=== PATIENT | female | born 1985 | race Asian ===

== ENCOUNTER → 2021-07-04 12:26 | Outpatient (CLI) | payer OTHER, MEDICAID, SELFPAY ==
--- NOTE | 2021-07-04 12:34 | DI.US.S_ITS ---
PROCEDURE: US OB >= 14 WEEKS FETUS INDICATIONS: ANATOMY OUTSIDE/PRIOR DATING DATA: Last menstrual period (LMP): Unknown. LMP-based estimated date of delivery (WILLY): Unknown. First dating scan (date and location): 07/03/2021. Estimated date of delivery (WILLY) from first dating scan: 09/20/2021. TECHNIQUE: Real-time scanning was performed of the fetus, with image documentation and biometric measurements. COMPARISON: None. FINDINGS: General: A single living intrauterine gestation is present. Presentation: Vertex Placenta: Placental position is posterior,, without previa. Amniotic fluid index: 8.9 cm, normal range is 5-24 cm. heart rate: 140 beats per minute. Maternal cervical canal: 4.9 cm long. Normal lower limit is 2.5 cm. biometrics: Biparietal diameter: 7.46 cm, 29 weeks, 6 days. Head circumference: 26.75 cm, 29 weeks, 1 day. Abdominal circumference: 24.05 cm, 28 weeks, 2 days. Femur length: 5.36 cm, 28 weeks, 3 days. Estimated gestational age from initial scan: not applicable. Composite gestational age from present scan: 28 weeks, 6 days Estimated weight and percentile: 1229 grams. Measurement variability for biometric dating: +/- 7 days from 14 weeks to 15 weeks 6 days gestation, +/- 10 days from 16 weeks to 21 weeks 6 days gestation, +/- 2 weeks from 22 weeks to 27 weeks 6 days gestation, +/- 3 weeks for 28 weeks gestation or later. weight reference: 4500 g or EFW >90/95% is considered macrosomia or large for gestational age. EFW <10% is small for gestational age. EFW 5% or less is considered intra-uterine growth restriction. Anatomic survey: Neuro: Ventricles are non-dilated at less than 10 mm. Cisterna magna is normal at 3-11 mm. Cerebellum is prominent in size for gestational age and measures 32.7 mm. Nuchal skin fold: Not evaluated due to current gestational age. Face: Nose and lips, facial profile are normal. Spine: Not well seen due to position. Heart: Questionable echogenic focus is seen in left ventricle. Right ventricular outflow tract is not well seen. Diaphragm: Diaphragm is intact. Stomach: Left-sided stomach is present. Kidneys: No hydronephrosis. Normal is less than 5 mm in 2nd trimester, less than 7 mm in 3rd trimester. Cord: 3-vessel cord has orthotopic insertion. Bladder: Normal in size. Extremities: All 4 extremities identified. IMPRESSION: 1. Single live intrauterine with fetus in vertex presentation. heart rate is 140 beats per minute. Estimated gestational age based on current study is 28 weeks, 6 days. Estimated weight is 1229 grams. Normal amount of amniotic fluid. 2. Possible echogenic focus seen in left ventricle. Right ventricular outflow tract is not well seen due to position. spine is not well seen due to position. 3. Prominent cerebellum foot gestational age, suggest clinical and sonographic follow-up. Dictated by: Yong Seay M.D. on 07/04/2021 at 14:53 Approved by: Yong Seay M.D. on 07/04/2021 at 14:59
== END ==
PROVIDERS: PCP Family Medicine; Referring Provider Family Medicine; Visit Provider Family Medicine
DX: Z34.83 Encounter for supervision of other normal pregnancy, third trimester (principal)
CPT/HCPCS: 76811

== ENCOUNTER → 2021-07-09 13:25 | Outpatient (CLI) | payer OTHER, MEDICAID, SELFPAY ==
[2021-07-09 15:41] LABS: Hematocrit 29.3 % (36-46); Hemoglobin 9.9 g/dL (12.0-16.0)
[2021-07-09 19:32] LABS: GTT (PREG) 1 Hour PP 50gm Dose 125 mg/dL (76-139)
== END ==
PROVIDERS: PCP Family Medicine; Referring Provider Family Medicine; Visit Provider Family Medicine
DX: Z34.90 Encounter for supervision of normal pregnancy, unspecified, unspecified trimester (principal)
CPT/HCPCS: 36415; 82950; 85014; 85018

== ENCOUNTER → 2021-07-14 14:16 | Outpatient (CLI) | payer OTHER, MEDICAID, SELFPAY ==
--- NOTE | 2021-07-14 14:16 | DI.US.S_ITS ---
PROCEDURE: US OB FOLLOW UP INDICATIONS: FOLLOW UP ANATOMY OUTSIDE/PRIOR DATING DATA: First dating scan (date and location): 07/03/2021 . Estimated date of delivery (WILLY) from first dating scan: 09/20/2021 . TECHNIQUE: Real-time scanning was performed of the fetus, with image documentation and biometric measurements. Endovaginal scanning: No COMPARISON: [facility], , OB >= 14 WEEKS FETUS, 07/04/2021, 13:06. FINDINGS: General: A single living intrauterine gestation is present. Presentation: Vertex. Placenta: Placental position is posterior , without previa. Amniotic fluid index: 4.4 cm, normal range is 5-24 cm. heart rate: 145 beats per minute. Maternal cervical canal: 4.1 cm long. Normal lower limit is 2.5 cm. Left ventricular intracardiac focus redemonstrated. Normal appearance of the RVOT. Spine is again not well seen secondary to positioning. Cerebellum is prominent but appears morphologically normal. IMPRESSION: 1. Single living IUP redemonstrated. 2. Left ventricular intracardiac focus redemonstrated. 3. Normal appearance of the RVOT and the spine is again not well visualized. 4. Morphologically normal appearance of the cerebellum which appears mildly prominent. 5. Amniotic fluid index measuring 4.4 cm which is less than the 5th percentile for age. Short-term follow-up ultrasound recommended. Dictated by: Basilio BRENNER Interpreted: Violetta Parsons MD on 07/14/2021 at 16:36 Transcribed by: LY on 07/14/2021 at 16:43 Approved by: Violetta Parsons MD, PhD on 07/14/2021 at 16:56
== END ==
PROVIDERS: PCP Family Medicine; Referring Provider Family Medicine; Visit Provider Family Medicine
DX: O28.3 Abnormal ultrasonic finding on antenatal screening of mother (principal)
CPT/HCPCS: 76816

== ENCOUNTER 2021-07-14 17:47 | Outpatient (CLI) | payer OTHER, MEDICAID, SELFPAY ==
--- NOTE | 2021-07-14 19:20 | PM.OBTRLD ---
Visit Information Visit Information Date of evaluation: 07/14/21 Primary OB Provider: Mikaela Beltran Reason for Evaluation: Yes non-stress test non-stress test reason: other (oligohydramnios) Comments/Additional reasons for admission: Patient is a 36-year-old at 30 weeks gestation here for NST for incidental oligohydramnios. She had a gap in care from 19-29 weeks and just had her anatomy ultrasound last week. Ultrasound was incomplete so a repeat ultrasound was performed today to better assess the heart, cerebellum and spine. PAUL incidentally was 4.4. Results were discussed with the patient and she was sent to the center for an NST. There is an urgent MFM referral pending. Ultrasound was also significant for a left ventricular intracardiac focus and prominent cerebellum but otherwise morphologically normal. She did not have a quad screen this . Vital Signs Vital Signs: T 36.5 BP 91/50 P 64 PFS Medical History (Updated 07/15/21 @ 07:35 by Mikaela Beltran DO) Allergic rhinitis Hives Oligohydramnios antepartum Pityriasis rosea (spontaneous vaginal delivery) (~10/2017) Surgical History [place] teeth extracted Family History Father Healthy adult male Family estrangement Mother Healthy female adult Family estrangement Grandfather No problems noted. Grandmother No problems noted. Grandfather No problems noted. Grandmother No problems noted. Social History marital status: number of children: 1 household members: children lives independently: Yes (In a Hotel ) caregiver/support person: No pets and animals: No occupational status: unemployed current occupational exposures/hazards: No special pipo needs: No Smoking Status: Former smoker Tobacco: How many years used: 13 quit status: quit date established (04/13/2017) second hand exposure: No ( smokes : but outside) alcohol intake: former (Pre- : 1-2/week) substance use type: does not use Evaluation Evaluation Baseline heart rate: 130 Variability: Moderate (11-25) monitor accelerations: Present Monitor Decelerations: Absent Category of Tracing: Reactive Diagnosis, Plan/Disposition Final Diagnosis (1) 30 weeks gestation of : Status: Acute (2) Oligohydramnios antepartum: Status: Acute Plan/Disposition Plan: 36-year-old at 30 weeks gestation with oligohydramnios of unknown etiology. NST reactive. She is aware of urgent MFM referral and will hopefully be seen this week. At a minimum she will need weekly PAUL is in twice weekly NSTs but will defer to MFM recommendations. OB Disposition: home
== END 2021-07-14 18:45 | disposition home or self-care (01) ==
LOC: OB 07-16 11:43
PROVIDERS: PCP Family Medicine; Referring Provider Family Medicine; Visit Provider Family Medicine
DX: O41.03X0 Oligohydramnios, third trimester, not applicable or unspecified (principal); Z3A.30 30 weeks gestation of pregnancy; O28.3 Abnormal ultrasonic finding on antenatal screening of mother
CPT/HCPCS: 59025; 76816; G0378; G0379

== ENCOUNTER 2021-07-18 10:51 | Outpatient (CLI) | payer OTHER, MEDICAID, SELFPAY ==
--- NOTE | 2021-07-18 10:55 | DI.US.S_ITS ---
PROCEDURE: US OB BIOPHYSICAL PROFILE INDICATIONS: OLIGOHYDRAMNIOS OUTSIDE/PRIOR DATING DATA: Last menstrual period (LMP): Not known. LMP-based estimated date of delivery (WILLY): Not applicable. First dating scan (date and location): July 03, 2021. Estimated date of delivery (WILLY) from first dating scan: September 20, 2021. TECHNIQUE: Real-time scanning was performed of the fetus for biophysical profile, with image documentation. Color and pulse Doppler interrogation was also performed of the umbilical artery near its insertion into the placenta. Endovaginal scanning: Performed COMPARISON: [facility], OB FOLLOW UP, 07/14/2021, 14:32. [facility], OB >= 14 WEEKS FETUS, 07/04/2021, 13:06. FINDINGS: General: A single living intrauterine gestation is present. Presentation: Vertex Placenta: Placental position is posterior fundal, without previa. Amniotic fluid index: 5.7 cm, normal range is 5-24 cm. heart rate: 163 beats per minute. Maternal cervical canal: Not well visualized and cannot be evaluated. Estimated gestational age from initial scan: 30 weeks 6 days. Biophysical profile: Tone: 2 points. Movement: 2 points. Respiration: 2 points. Largest pocket of fluid: 2 points. Umbilical artery Doppler: Not evaluated IMPRESSION: 1. Single living intrauterine . 2. Amniotic fluid index 5.7 centimeters and largest amniotic fluid pocket measuring 4.3 centimeters. 3. Biophysical profile score 8/8. Dictated by: Violetta Parsons MD, PhD on 07/18/2021 at 12:37 Approved by: Violetta Parsons MD, PhD on 07/18/2021 at 12:40
--- NOTE | 2021-07-18 11:24 | PM.OBTRLD ---
Visit Information Visit Information Date of evaluation: 07/18/21 Primary OB Provider: Mikaela Beltran Reason for Evaluation: Yes non-stress test non-stress test reason: other (oligohydramnios) Vital Signs Vital Signs: T 96.6 BP 103/58 P 77 PFSH Medical History Allergic rhinitis Hives Oligohydramnios antepartum Pityriasis rosea (spontaneous vaginal delivery) (~10/2017) Surgical History [place] teeth extracted Family History Father Healthy adult male Family estrangement Mother Healthy female adult Family estrangement Grandfather No problems noted. Grandmother No problems noted. Grandfather No problems noted. Grandmother No problems noted. Social History marital status: number of children: 1 household members: children lives independently: Yes (In a Hotel ) caregiver/support person: No pets and animals: No occupational status: unemployed current occupational exposures/hazards: No special pipo needs: No Smoking Status: Former smoker Tobacco: How many years used: 13 quit status: quit date established (04/13/2017) second hand exposure: No ( smokes : but outside) alcohol intake: former (Pre- : 1-2/week) substance use type: does not use Evaluation Evaluation Baseline heart rate: 130 Variability: Moderate (11-25) monitor accelerations: Present Monitor Decelerations: Absent Category of Tracing: Reactive Diagnosis, Plan/Disposition Plan/Disposition Plan: 36-year-old at 30 weeks and 4 days gestation with oligohydramnios of unknown etiology.? BPP 8/8 and NST reactive.? PAUL 5.7, improved from 4.4 earlier this week. She is scheduled with MFM on Wednesday07/21/21 and will follow up in clinic next week as well.
== END 2021-07-18 11:50 | disposition home or self-care (01) ==
LOC: LABOR 11:03 → OB 07-29 03:06
PROVIDERS: PCP Family Medicine; Referring Provider Family Medicine; Visit Provider Family Medicine
DX: O41.03X0 Oligohydramnios, third trimester, not applicable or unspecified (principal); O09.523 Supervision of elderly multigravida, third trimester; Z3A.30 30 weeks gestation of pregnancy
CPT/HCPCS: 59025; 76819; G0378; G0379

== ENCOUNTER 2021-07-25 15:41 | Outpatient (CLI) | payer OTHER, MEDICAID, SELFPAY ==
--- NOTE | 2021-07-25 17:11 | P.TNLD_ITS ---
Visit Information Visit Information Date of evaluation: 07/25/21 Primary OB Provider: Mikaela Beltran Reason for Evaluation: Yes non-stress test Comments/Additional reasons for admission: 36-year-old at 31 weeks and 4 days gestation with growth restriction and borderline oligohydramnios followed by maternal medicine. PAUL earlier this week was 5.7. Recommendation is for weekly PAUL and umbilical artery Dopplers with twice weekly NST. Vital Signs Vital Signs: Temperature 36.1? blood pressure 96/56 heart rate 69 PFSH Medical History Allergic rhinitis Hives Oligohydramnios antepartum Pityriasis rosea (spontaneous vaginal delivery) (~10/2017) Surgical History [place] teeth extracted Family History Father Healthy adult male Family estrangement Mother Healthy female adult Family estrangement Grandfather No problems noted. Grandmother No problems noted. Grandfather No problems noted. Grandmother No problems noted. Social History marital status: number of children: 1 household members: children lives independently: Yes (In a Hotel ) caregiver/support person: No pets and animals: No occupational status: unemployed current occupational exposures/hazards: No special pipo needs: No Smoking Status: Former smoker Tobacco: How many years used: 13 quit status: quit date established (04/13/2017) second hand exposure: No ( smokes : but outside) alcohol intake: former (Pre- : 1-2/week) substance use type: does not use Evaluation Evaluation Baseline heart rate: 130 Variability: Moderate (11-25) monitor accelerations: Present Monitor Decelerations: Absent Category of Tracing: Reactive Diagnosis, Plan/Disposition Final Diagnosis (1) Oligohydramnios antepartum: Status: Acute (2) 31 weeks gestation of : Status: Acute (3) growth restriction: Status: Acute Plan/Disposition Plan: NST reactive. She will follow-up with MFM next week for NST, PAUL in umbilical artery Dopplers. Will plan for NST here at the end of next week. She will return for decreased movement, contractions, leaking or bleeding. OB Disposition: home
== END 2021-07-25 16:45 | disposition home or self-care (01) ==
LOC: LABOR 16:02 → OB 07-29 04:48
PROVIDERS: PCP Family Medicine; Referring Provider Family Medicine; Visit Provider Family Medicine
DX: O41.03X0 Oligohydramnios, third trimester, not applicable or unspecified (principal); O09.523 Supervision of elderly multigravida, third trimester; Z3A.31 31 weeks gestation of pregnancy
CPT/HCPCS: 59025; G0378; G0379

== ENCOUNTER 2021-08-01 13:56 | Outpatient (CLI) | payer OTHER, MEDICAID, SELFPAY ==
--- NOTE | 2021-08-01 14:43 | PM.OBTRLD ---
Visit Information Visit Information Date of evaluation: 08/01/21 Primary OB Provider: Mikaela Beltran Reason for Evaluation: Yes non-stress test non-stress test reason: other (borderline oligohydramnios) Comments/Additional reasons for admission: 36-year-old at 32 weeks and 4 days gestation with growth restriction and borderline oligohydramnios followed by maternal medicine.? PAUL earlier this week was 6.6.? Recommendation is for weekly PAUL and umbilical artery Dopplers with twice weekly NST. Vital Signs Vital Signs: Temperature 36.1? blood pressure 103/61 heart rate 75 PFSH Medical History Allergic rhinitis Hives Oligohydramnios antepartum Pityriasis rosea (spontaneous vaginal delivery) (~10/2017) Surgical History [place] teeth extracted Family History Father Healthy adult male Family estrangement Mother Healthy female adult Family estrangement Grandfather No problems noted. Grandmother No problems noted. Grandfather No problems noted. Grandmother No problems noted. Social History marital status: number of children: 1 household members: children lives independently: Yes (In a Hotel ) caregiver/support person: No pets and animals: No occupational status: unemployed current occupational exposures/hazards: No special pipo needs: No Smoking Status: Former smoker Tobacco: How many years used: 13 quit status: quit date established (04/13/2017) second hand exposure: No ( smokes : but outside) alcohol intake: former (Pre- : 1-2/week) substance use type: does not use Evaluation Evaluation Baseline heart rate: 140 Variability: Moderate (11-25) monitor accelerations: Present Monitor Decelerations: Absent Category of Tracing: Reactive Diagnosis, Plan/Disposition Final Diagnosis (1) 32 weeks gestation of : Status: Acute (2) growth restriction: Status: Acute (3) Oligohydramnios antepartum: Status: Acute Plan/Disposition Plan: NST reactive.? She will follow-up with MFM next week for NST, PAUL and umbilical artery Dopplers.? Will plan for NST here in one week.? She will return for decreased movement, contractions, leaking or bleeding. OB Disposition: home
== END 2021-08-01 14:47 | disposition home or self-care (01) ==
LOC: LABOR 14:43 → OB 08-05 14:36
PROVIDERS: PCP Family Medicine; Referring Provider Family Medicine; Visit Provider Family Medicine
DX: O36.5930 Maternal care for other known or suspected poor fetal growth, third trimester, not applicable or unspecified (principal); O41.03X0 Oligohydramnios, third trimester, not applicable or unspecified; Z3A.32 32 weeks gestation of pregnancy
CPT/HCPCS: 59025; G0378; G0379

== ENCOUNTER 2021-08-08 13:49 | Outpatient (CLI) | payer OTHER, MEDICAID, SELFPAY ==
--- NOTE | 2021-08-08 14:13 | PM.OBTRLD ---
Visit Information Visit Information Date of evaluation: 08/08/21 Primary OB Provider: Mikaela Beltran Reason for Evaluation: Yes non-stress test non-stress test reason: other (borderline oligohydramnios, IUGR) Vital Signs Vital Signs: Temperature 36.4? blood pressure 100/55 heart rate 76 PFSH Medical History Allergic rhinitis Hives Oligohydramnios antepartum Pityriasis rosea (spontaneous vaginal delivery) (~10/2017) Surgical History [place] teeth extracted Family History Father Healthy adult male Family estrangement Mother Healthy female adult Family estrangement Grandfather No problems noted. Grandmother No problems noted. Grandfather No problems noted. Grandmother No problems noted. Social History marital status: number of children: 1 household members: children lives independently: Yes (In a Hotel ) caregiver/support person: No pets and animals: No occupational status: unemployed current occupational exposures/hazards: No special pipo needs: No Smoking Status: Former smoker Tobacco: How many years used: 13 quit status: quit date established (04/13/2017) second hand exposure: No ( smokes : but outside) alcohol intake: former (Pre- : 1-2/week) substance use type: does not use Evaluation Evaluation Baseline heart rate: 140 Variability: Moderate (11-25) monitor accelerations: Present Monitor Decelerations: Absent Category of Tracing: Reactive Diagnosis, Plan/Disposition Final Diagnosis (1) 33 weeks gestation of : Status: Acute (2) growth restriction: Status: Acute (3) Oligohydramnios antepartum: Status: Acute Plan/Disposition Plan: 36-year-old at 33 weeks and 4 days gestation with growth restriction and borderline oligohydramnios followed by maternal medicine.? PAUL earlier this week was 7.1.? She will continue weekly PAUL, NST and umbilical artery Dopplers with MFM on Mondays and NST here on Fridays. Reactive NST today. OB Disposition: home
== END 2021-08-08 14:30 | disposition home or self-care (01) ==
LOC: LABOR 13:51 → OB 08-11 09:20
PROVIDERS: PCP Family Medicine; Referring Provider Family Medicine; Visit Provider Family Medicine
DX: O41.03X0 Oligohydramnios, third trimester, not applicable or unspecified (principal); O36.5930 Maternal care for other known or suspected poor fetal growth, third trimester, not applicable or unspecified; O09.523 Supervision of elderly multigravida, third trimester; Z3A.33 33 weeks gestation of pregnancy
CPT/HCPCS: 59025; G0378; G0379

== ENCOUNTER 2021-08-11 14:44 | Outpatient (CLI) | payer OTHER, MEDICAID, SELFPAY ==
--- NOTE | 2021-08-11 15:30 | P.TNLD_ITS ---
Visit Information Visit Information Date of evaluation: 08/11/21 Primary OB Provider: Mikaela Beltran Reason for Evaluation: Yes non-stress test non-stress test reason: other (IUGR, borderline oligohydramnios) Vital Signs Vital Signs: Temperature 36.0? blood pressure 95/61 heart rate 72 PFSH Medical History Allergic rhinitis Hives Oligohydramnios antepartum Pityriasis rosea (spontaneous vaginal delivery) (~10/2017) Surgical History [place] teeth extracted Family History Father Healthy adult male Family estrangement Mother Healthy female adult Family estrangement Grandfather No problems noted. Grandmother No problems noted. Grandfather No problems noted. Grandmother No problems noted. Social History marital status: number of children: 1 household members: children lives independently: Yes (In a Hotel ) caregiver/support person: No pets and animals: No occupational status: unemployed current occupational exposures/hazards: No special pipo needs: No Smoking Status: Former smoker Tobacco: How many years used: 13 quit status: quit date established (04/13/2017) second hand exposure: No ( smokes : but outside) alcohol intake: former (Pre- : 1-2/week) substance use type: does not use Evaluation Evaluation Baseline heart rate: 130 Variability: Moderate (11-25) monitor accelerations: Present Monitor Decelerations: Absent Category of Tracing: Reactive Diagnosis, Plan/Disposition Final Diagnosis (1) 34 weeks gestation of : Status: Acute (2) growth restriction: Status: Acute (3) Oligohydramnios antepartum: Status: Acute Plan/Disposition Plan: 36-year-old at 34 weeks gestation with growth restriction and borderline oligohydramnios followed by maternal medicine.? Reactive NST today. Scheduled with MFM this week for growth US, PAUL and UA dopplers. OB Disposition: home
== END 2021-08-11 15:35 | disposition home or self-care (01) ==
LOC: LABOR 14:52 → OB 08-13 07:32
PROVIDERS: PCP Family Medicine; Referring Provider Family Medicine; Visit Provider Family Medicine
DX: O41.03X0 Oligohydramnios, third trimester, not applicable or unspecified (principal); O36.5930 Maternal care for other known or suspected poor fetal growth, third trimester, not applicable or unspecified; Z3A.34 34 weeks gestation of pregnancy
CPT/HCPCS: 59025; G0378; G0379

== ENCOUNTER 2021-08-18 14:48 | Outpatient (CLI) | payer OTHER, MEDICAID, SELFPAY ==
--- NOTE | 2021-08-18 15:29 | PM.OBTRLD ---
Visit Information Visit Information Date of evaluation: 08/18/21 Primary OB Provider: Mikaela Beltran Reason for Evaluation: Yes non-stress test non-stress test reason: other (borderline oligohydramnios) [facility] Medical History Allergic rhinitis Hives Oligohydramnios antepartum Pityriasis rosea (spontaneous vaginal delivery) (~10/2017) Surgical History [place] teeth extracted Family History Father Healthy adult male Family estrangement Mother Healthy female adult Family estrangement Grandfather No problems noted. Grandmother No problems noted. Grandfather No problems noted. Grandmother No problems noted. Social History marital status: number of children: 1 household members: children lives independently: Yes (In a Hotel ) caregiver/support person: No pets and animals: No occupational status: unemployed current occupational exposures/hazards: No special pipo needs: No Smoking Status: Former smoker Tobacco: How many years used: 13 quit status: quit date established (04/13/2017) second hand exposure: No ( smokes : but outside) alcohol intake: former (Pre- : 1-2/week) substance use type: does not use Evaluation Evaluation Baseline heart rate: 135 Variability: Moderate (11-25) monitor accelerations: Present Monitor Decelerations: Absent Category of Tracing: Reactive Diagnosis, Plan/Disposition Final Diagnosis (1) 35 weeks gestation of : Status: Acute (2) growth restriction: Status: Acute (3) Oligohydramnios antepartum: Status: Acute Plan/Disposition Plan: 36-year-old at 35 weeks gestation with growth restriction and borderline oligohydramnios followed by maternal medicine. Reactive NST today. Had US with MFM last week, reportedly improved fluid and growth though note yet available. She will follow up with MFM at the end of this week and in clinic as well. OB Disposition: home
== END 2021-08-18 15:33 | disposition home or self-care (01) ==
LOC: OB 08-19 01:32
PROVIDERS: PCP Family Medicine; Referring Provider Family Medicine; Visit Provider Family Medicine
DX: O41.03X0 Oligohydramnios, third trimester, not applicable or unspecified (principal); O36.5930 Maternal care for other known or suspected poor fetal growth, third trimester, not applicable or unspecified; O09.523 Supervision of elderly multigravida, third trimester; Z3A.35 35 weeks gestation of pregnancy
CPT/HCPCS: 59025; G0378; G0379

== ENCOUNTER → 2021-08-22 15:48 | Outpatient (CLI) | payer OTHER, MEDICAID, SELFPAY ==
[2021-08-23 15:05] LABS: Strep Grp B PCR POS for Grp B Strep
== END ==
PROVIDERS: PCP Family Medicine; Visit Provider Family Medicine
DX: Z34.90 Encounter for supervision of normal pregnancy, unspecified, unspecified trimester (principal); Z3A.35 35 weeks gestation of pregnancy
CPT/HCPCS: 87653

== ENCOUNTER 2021-08-25 14:53 | Outpatient (CLI) | payer OTHER, MEDICAID, SELFPAY | END 2021-08-25 15:50 | disposition home or self-care (01) | LOC: LABOR 15:40 → OB 08-27 08:28 | PROVIDERS: PCP Family Medicine; Referring Provider Family Medicine; Visit Provider Family Medicine | DX: O47.03 False labor before 37 completed weeks of gestation, third trimester (principal); O41.03X0 Oligohydramnios, third trimester, not applicable or unspecified; O36.5930 Maternal care for other known or suspected poor fetal growth, third trimester, not applicable or unspecified; Z3A.36 36 weeks gestation of pregnancy | CPT/HCPCS: 59025; G0378; G0379 ==

== ENCOUNTER → 2021-08-29 09:52 | Outpatient (CLI) | payer OTHER, MEDICAID, SELFPAY ==
--- NOTE | 2021-08-29 09:53 | DI.US.S_ITS ---
PROCEDURE: US OB LIMITED INDICATIONS: PAUL, borderline oligo OUTSIDE/PRIOR DATING DATA: Last menstrual period (LMP): Unknown. LMP-based estimated date of delivery (WILLY): Unknown. First dating scan (date and location): 07/03/2021. Estimated date of delivery (WILLY) from first dating scan: 09/20/2021. TECHNIQUE: Real-time scanning was performed of the fetus, with image documentation. COMPARISON: [facility], , OB BIOPHYSICAL PROFILE, 07/18/2021, 11:11. FINDINGS: A single living intrauterine gestation is present. Presentation: Vertex. Placenta: Placental position is posterior fundal, without previa. Amniotic fluid index: 5.6 cm, normal range is 5-24 cm. Largest pocket 2.6 cm. heart rate: 165 beats per minute. Maternal cervical canal: Not well seen. Estimated gestational age from initial scan: 36 weeks 6 days. IMPRESSION: 1. [place] living intrauterine at 36 weeks 6 days based on prior dating. 2. Normal placenta and amniotic fluid. PAUL 5.6 cm. Largest pocket 2.6 cm. Dictated by: Andrea Salcido M.D. on 08/29/2021 at 13:31 Approved by: Andrea Salcido M.D. on 08/29/2021 at 13:34
== END ==
PROVIDERS: PCP Family Medicine; Referring Provider Family Medicine; Visit Provider Family Medicine
DX: O41.00X0 Oligohydramnios, unspecified trimester, not applicable or unspecified (principal); Z3A.36 36 weeks gestation of pregnancy
CPT/HCPCS: 76815

== ENCOUNTER 2021-08-29 10:21 | Outpatient (CLI) | payer OTHER, MEDICAID, SELFPAY ==
--- NOTE | 2021-08-29 12:54 | P.TNLD_ITS ---
Visit Information Visit Information Date of evaluation: 08/29/21 Primary OB Provider: Mikaela Beltran Reason for Evaluation: Yes non-stress test non-stress test reason: other (borderline oligo) Vital Signs Vital Signs: Temperature 36.1? blood pressure 104/55 heart rate 74 PFSH Medical History Allergic rhinitis Hives Oligohydramnios antepartum Pityriasis rosea (spontaneous vaginal delivery) (~10/2017) Surgical History [place] teeth extracted Family History Father Healthy adult male Family estrangement Mother Healthy female adult Family estrangement Grandfather No problems noted. Grandmother No problems noted. Grandfather No problems noted. Grandmother No problems noted. Social History marital status: number of children: 1 household members: children lives independently: Yes (In a Hotel ) caregiver/support person: No pets and animals: No occupational status: unemployed current occupational exposures/hazards: No special pipo needs: No Smoking Status: Former smoker Tobacco: How many years used: 13 quit status: quit date established (04/13/2017) second hand exposure: No ( smokes : but outside) alcohol intake: former (Pre- : 1-2/week) substance use type: does not use Evaluation Evaluation Baseline heart rate: 140 Variability: Moderate (11-25) monitor accelerations: Present Monitor Decelerations: Absent Category of Tracing: Reactive Diagnosis, Plan/Disposition Final Diagnosis (1) 36 weeks gestation of : Status: Acute (2) Oligohydramnios antepartum: Status: Acute Plan/Disposition Plan: 36-year-old at 36 weeks and 4 days gestation with borderline oligohydramnios followed by maternal medicine.? Previously concerned about growth restriction however last EFW was 29%. PAUL 5.6. Reactive NST today.?Continue weekly PAUL and twice weekly NST. Induction at 39 weeks unless fluid decreases <5. OB Disposition: home
== END 2021-08-29 11:00 | disposition home or self-care (01) ==
LOC: OB 09-02 11:15
PROVIDERS: PCP Family Medicine; Referring Provider Family Medicine; Visit Provider Family Medicine
DX: O41.03X0 Oligohydramnios, third trimester, not applicable or unspecified (principal); Z3A.36 36 weeks gestation of pregnancy
CPT/HCPCS: 59025; 76815; G0378; G0379

== ENCOUNTER 2021-09-01 15:29 | Outpatient (CLI) | payer OTHER, MEDICAID, SELFPAY ==
--- NOTE | 2021-09-01 16:01 | P.TNLD_ITS ---
Visit Information Visit Information Date of evaluation: 09/01/21 Primary OB Provider: Mikaela Beltran Reason for Evaluation: Yes non-stress test non-stress test reason: other (borderline oligo) Vital Signs Vital Signs: Temperature 36.1? blood pressure 106/62 heart rate 80 PFSH Medical History Allergic rhinitis Hives Oligohydramnios antepartum Pityriasis rosea (spontaneous vaginal delivery) (~10/2017) Surgical History [place] teeth extracted Family History Father Healthy adult male Family estrangement Mother Healthy female adult Family estrangement Grandfather No problems noted. Grandmother No problems noted. Grandfather No problems noted. Grandmother No problems noted. Social History marital status: number of children: 1 household members: children lives independently: Yes (In a Hotel ) caregiver/support person: No pets and animals: No occupational status: unemployed current occupational exposures/hazards: No special pipo needs: No Smoking Status: Former smoker Tobacco: How many years used: 13 quit status: quit date established (04/13/2017) second hand exposure: No ( smokes : but outside) alcohol intake: former (Pre- : 1-2/week) substance use type: does not use Evaluation Evaluation Baseline heart rate: 130 Variability: Moderate (11-25) monitor accelerations: Present Monitor Decelerations: Absent Category of Tracing: Reactive Diagnosis, Plan/Disposition Final Diagnosis (1) Oligohydramnios antepartum: Status: Acute (2) 37 weeks gestation of : Status: Acute Plan/Disposition Plan: 36-year-old at 37 weeks gestation with borderline oligohydramnios.? Reactive NST today.? NST and PAUL later this week with clinic appointment. OB Disposition: home
== END 2021-09-01 16:10 | disposition home or self-care (01) ==
LOC: OB 09-02 11:18
PROVIDERS: PCP Family Medicine; Referring Provider Family Medicine; Visit Provider Family Medicine
DX: O41.03X0 Oligohydramnios, third trimester, not applicable or unspecified (principal); Z3A.37 37 weeks gestation of pregnancy
CPT/HCPCS: 59025; G0378; G0379

== ENCOUNTER 2021-09-04 09:00 | Outpatient (CLI) | payer OTHER, MEDICAID, SELFPAY ==
--- NOTE | 2021-09-04 09:59 | P.TNLD_ITS ---
Visit Information Visit Information Date of evaluation: 09/04/21 Primary OB Provider: Mikaela Betlran Reason for Evaluation: Yes non-stress test non-stress test reason: other (borderline oligohydramnios) Vital Signs Vital Signs: Temperature 36.3? blood pressure 94/53 heart rate 69 PFSH Medical History Allergic rhinitis Hives Oligohydramnios antepartum Pityriasis rosea (spontaneous vaginal delivery) (~10/2017) Surgical History [place] teeth extracted Family History Father Healthy adult male Family estrangement Mother Healthy female adult Family estrangement Grandfather No problems noted. Grandmother No problems noted. Grandfather No problems noted. Grandmother No problems noted. Social History marital status: number of children: 1 household members: children lives independently: Yes (In a Hotel ) caregiver/support person: No pets and animals: No occupational status: unemployed current occupational exposures/hazards: No special pipo needs: No Smoking Status: Former smoker Tobacco: How many years used: 13 quit status: quit date established (04/13/2017) second hand exposure: No ( smokes : but outside) alcohol intake: former (Pre- : 1-2/week) substance use type: does not use Evaluation Evaluation Baseline heart rate: 130 Variability: Moderate (11-25) monitor accelerations: Present Monitor Decelerations: Absent Category of Tracing: Reactive Diagnosis, Plan/Disposition Final Diagnosis (1) 37 weeks gestation of : Status: Acute (2) Oligohydramnios antepartum: Status: Acute Plan/Disposition Plan: 36-year-old at 37 weeks and 3 days gestation followed closely due to borderline oligohydramnios.? Reactive NST however PAUL 3. Will admit for induction for oligohydramnios.
--- NOTE | 2021-09-04 10:03 | DI.US.S_ITS ---
PROCEDURE: US OB LIMITED INDICATIONS: PAUL OUTSIDE/PRIOR DATING DATA: Last menstrual period (LMP): Unknown LMP-based estimated date of delivery (WILLY): The no First dating scan (date and location): 07/03/2021 Estimated date of delivery (WILLY) from first dating scan: 09/20/2021 TECHNIQUE: Real-time scanning was performed of the fetus, with image documentation and biometric measurements. Endovaginal scanning: Not performed COMPARISON: [facility], OB LIMITED, 08/29/2021, 10:06. FINDINGS: General: A single living intrauterine gestation is present. Presentation: Vertex. Placenta: Placental position is anterior fundal , without previa. Amniotic fluid index: 3.8 cm, normal range is 5-24 cm. Largest vertical pocket 2 point 0 cm heart rate: 144 beats per minute. Maternal cervical canal: Nonvisualized Estimated gestational age from present scan from initial scan: 37 week 5 day IMPRESSION: Single live intrauterine consistent with 37 week 5 day gestation Worsening oligohydramnios. PAUL 3.8 cm, previously 5.6 cm Approved by: Grady Armstrong M.D. on 09/04/2021 at 11:09
== END 2021-09-04 10:35 | disposition home or self-care (01) ==
LOC: LABOR 10:05 → OB 09-05 06:57
PROVIDERS: PCP Family Medicine; Referring Provider Family Medicine; Visit Provider Family Medicine
DX: O41.03X0 Oligohydramnios, third trimester, not applicable or unspecified (principal); Z3A.37 37 weeks gestation of pregnancy
CPT/HCPCS: 59025; 59050; 76815; G0378; G0379

== ENCOUNTER 2021-09-04 13:25 | Inpatient (IN) | payer OTHER, MEDICAID, SELFPAY ==
--- NOTE | 2021-09-04 13:52 | PM.OBHP.IH.1 ---
OB HPI Date/Time Date of admission: 09/04/21 Date Patient Seen: 09/04/21 History of Present Condition Chief complaint: WILLY Calculator Estimated Delivery Date Method Current WG Current Estimate 09/22/21 LMP (Certain) 37w 3d Other Estimates 09/23/21 Ultrasound #1 37w 2d Estimated Gestational Age (weeks): 37w3d : 2 Para: 1 Narrative: 36-year-old at 37 weeks and 3 days admitted for induction due to oligohydramnios. She transferred care at 28 weeks from [place]. She had a 2 month lapse in care due to moving to [place]. Anatomy ultrasound was done late at 28 weeks and notable at that time for low normal fluid, incomplete visualization of the heart and prominent cerebella. Repeat ultrasound was done which returned with an PAUL of 4 and concern for growth restriction. She was referred to maternal medicine were anatomy was found to be normal however abdominal circumference less than tenth percentile consistent with growth restriction. PAUL had improved to the low normal range. Umbilical artery dopplers were normal. She was followed closely with weekly PAUL and twice weekly nonstress tests alternating between [place] and [place]. Last growth ultrasound at 34 weeks with significant for estimated weight at the 28 percentile. Today she came in for a nonstress test in PAUL. PAUL was 3.8. She denies any leaking of fluid or bleeding and reports good movement. She has started to have some mild contractions. Her social situation is complicated. She currently lives in a hotel with her and toddler daughter. They have bought a house in [place] but it needs a lot of work before they are able to move in. care: good care (Lapse in care between at 19 and 29 weeks, otherwise good care), initiated at week # (5), number of visits (11) and pounds weight gain (50) Dating criteria OB: LMP confirmed by 1st trimester US Ultrasounds: other (As above with all the oligohydramnios and concern for growth restriction which resolved) Obstetrical complications: growth restriction (Resolved as above) and other (Oligohydramnios as above) Medical complications OB: none Indications Indication for induction OB: oligohydramnios Preadmission Labs Last OB Lab Results: Blood Type O Positive 09/04/21 16:00 09/04/21 Antibody Screen Negative 09/04/21 16:00 09/04/21 Hematocrit 32.6 % (36-46) L 09/04/21 16:00 09/04/21 Hemoglobin 11.4 g/dL (12.0-16.0) L 09/04/21 16:00 09/04/21 Glucose 1 Hour 125 mg/dL (76-139) 07/09/21 13:31 07/09/21 Group B Streptococcus (PCR) Pos for grp b strep H 08/22/21 15:48 08/22/21 External Labs -: HBsAG: negative, HIV: negative, RPR/VDLR: negative and GBS status: positive -: Rubella: immune Prior (ies) Past Pregnancies Del. Date GA/Weeks Labor Lgth Wt Sex Route Outcome Anesthesia Place Delv Breastfeed Preg Comp Name 10/25/17 39.4 3 7 lb Female vaginal live - full term epidural [place] 2 years old none Saffi Anndrmarilu [place] Delivery Date: 10/25/17 Last Updated by: Simi Quinteros RDenisha *No issues PP Evaluation Evaluation Baseline heart rate: 130 Variability: Moderate (11-25) monitor accelerations: Present Monitor Decelerations: Absent Category of Tracing: Reactive Status: Category l Dilation (cm): 0 Effacement (%): 25 Dilation: Closed Effacement: 0-30% station: -2 Position of cervix: posterior Consistency: medium Mcleod score: 2 PFSH Medical History Allergic rhinitis Hives Oligohydramnios antepartum Pityriasis rosea (spontaneous vaginal delivery) (~10/2017) Surgical History [place] teeth extracted Family History Father Healthy adult male Family estrangement Mother Healthy female adult Family estrangement Grandfather No problems noted. Grandmother No problems noted. Grandfather No problems noted. Grandmother No problems noted. Social History marital status: number of children: 1 household members: children lives independently: Yes (In a Hotel ) caregiver/support person: No pets and animals: No occupational status: unemployed current occupational exposures/hazards: No special pipo needs: No Smoking Status: Never smoker Tobacco: How many years used: 13 quit status: quit date established (04/13/2017) second hand exposure: No ( smokes : but outside) alcohol intake: former (Pre- : 1-2/week) substance use type: does not use Meds Home Medications and Allergies Home Medications Medication Instructions Recorded Confirmed Type prenat.vits,jasvir,[id number] 1 tab PO DAILY 07/08/21 09/04/21 History Allergies Allergy/AdvReac Type Severity Reaction Status Date / Time No Known Drug Allergies Allergy Unverified 07/08/21 12:12 Review of Systems Review of Systems ROS: Yes All systems reviewed with the patient and are negative except as otherwise documented OB Exam Narrative Exam Narrative: Temperature 36.4? blood pressure 102/63 heart rate 85 HENMT Head: normal to inspection Eyes General: appearance normal, both eyes and all related structures Resp Effort & Inspection: normal respiratory effort Auscultation: clear to auscultation bilaterally Cardio Rate: regular rate Rhythm: regular rhythm Extremities Lower extremity: Yes normal to inspection; No edema Uterus Location (Fundal Height): 37 Presentation: vertex Estimated Weight (lbs): 6 Objective Labs Result Diagrams: 09/04/21 16:00 Assessment and Plan Assessment and Plan Assessment and Plan narrative: 36-year-old at 37 weeks and 3 days gestation with idiopathic oligohydramnios. PAUL was 3.8 today prompting induction. She was followed closely by Maternal Medicine due to borderline oligohydramnios at 29 weeks and concern for growth restriction (however last estimated weight was 28 percentile at 34 weeks). Plan Admit labs, COVID testing Cervidil needed due to unfavorable cervix Start Pitocin wants cervix is favorable Will start GBS prophylaxis once in active labor Epidural upon request Anticipate
[2021-09-04 15:16] VITALS: BP 102/63
[2021-09-04 16:18] LABS: Add Manual Diff / Slide Review NO; Basophils Absolute Auto 0 /uL (0-100); Basophils Percent Auto 0.4 % (0-2); Eosinophils Absolute Auto 100 /uL (0-450); Eosinophils Percent Auto 0.7 % (2-4); Hematocrit 32.6 % (36-46); Hemoglobin 11.4 g/dL (12.0-16.0); Lymphocytes Absolute Auto 1400 /uL (1100-4500); Lymphocytes Percent Auto 16.8 % (25-40); Mean Corpuscular Hemoglobin 34.4 PG (26-34); Mean Corpuscular Volume 98.2 fL (80-100); Monocytes Absolute Auto 400 /uL (0-900); Monocytes Percent Auto 5.2 % (3-14); Neutrophils Absolute Auto 6300 /uL (1500-7000); Neutrophils Percent Auto 76.9 % (50-75); Platelet Count 146 X10^3/uL (150-400); Red Blood Cell Count 3.32 X10^6/uL (4.0-5.2); Red Cell Distribution Width 13.1 % (11.6-14.8); White Blood Cell Count 8.3 X10^3/uL (4.5-11.0)
[2021-09-04 16:35] LABS: COVID19 -Nasal RAPID Negative (Negative)
[2021-09-04] MEDS: DINOPROSTONE VAG (CERVIDIL) 10 MG VAG (16:46)
[2021-09-04] MEDS: ZOLPIDEM 5 MG TABLET PO (22:25)
[2021-09-05] MEDS: fentaNYL 100 MCG/2 ML INJ 50 MCG IV ×3 (03:14→06:52)
[2021-09-05] MEDS: LACTATED RINGERS 1,000 ML 100 ML IV (06:01)
[2021-09-05] MEDS: PENICILLIN G POTASSIUM 5,000,000 UNIT in DEXTROSE 5% IN WATER 250 ML IV (06:01)
[2021-09-05] MEDS: OXYTOCIN PREMIX 30 UNIT/500 ML PLAST..BAG IV (06:02)
--- NOTE | 2021-09-05 07:12 | PM.OBPRVD ---
Labor & Delivery Delivery date: 09/05/21 Intrapartal Events: Precipitous Labor < 3 hours Cervical ripening method: per Cervidil protocol Delivery monitor: external FHT Route of delivery: L&D Laceration Description: Perineal - 2nd Degree Delivery repair: chromic Estimated blood loss (mL): 200 Anesthesia Type: None Narrative: Patient is a 36-year-old at 37 weeks and 4 days who gave on 09/05/21 at 06:30. WILLY: 09/22/21 Hospital problems: 37 weeks of Oligohydramnios GBS positive Spontaneous vaginal delivery Patient was admitted for induction due to oligohydramnios with an PAUL of 3.8. She received Cervidil overnight. Cervidil was removed after 12 hours and she was feeling mild contractions. At 06:00 contractions increased and rupture of membranes occurred at 06:05 with clear fluid. She became much more painful immediately after and requested an epidural. Anesthesia was called. She utilized nitrous oxide briefly but was complete and pushing involuntarily at 06:25. Spontaneous vaginal delivery occurred at 06:30 of a vigorous female . Infant was vertex and MARILIA. Infant was immediately placed on mother's abdomen. Cord was clamped and cut after several minute delay. Apgars were 8 and 9. No resuscitation of the required. Placenta delivered at 6:40 a.m. after active management and appeared intact with a three-vessel cord. Pitocin bolus given after delivery of placenta. A second-degree perineal laceration was repaired in the usual fashion with 3-0 chromic with good hemostasis. Uterine fundus was firm well below umbilicus after delivery. EBL 200 mL. Patient was doing well with Salma, her . Partner arrived after delivery. Baby 1: gender: Female Presentation: vertex Position: Right Occiput Anterior Placenta delivery description: Spontaneous Cord Vessel Description: 3 Vessels score (1 min): 8 score (5 min): 9 Plan for aftercare: Routine care
[2021-09-05] MEDS: IBUPROFEN 600 MG TABLET PO ×2 (08:03→18:07)
[2021-09-06] MEDS: IBUPROFEN 600 MG TABLET PO ×2 (06:01)
--- NOTE | 2021-09-06 10:08 | PM.OBDS.1 ---
Discharge Providers Provider Date of admission: 09/04/21 13:25 Discharge Date: 09/06/21 Primary care physician: Mikaela Beltran DO Consults: 09/06/21 07:15 Consult to [employer] Routine Comment: Discharge provider: Mikaela Beltran DO Summary Hospital Course Date Patient Seen: 09/06/21 Time Patient Seen: 10:00 Diagnoses: Thirty-seven weeks of Oligohydramnios Advanced maternal age GBS positive Spontaneous vaginal delivery Hospital Course: 36-year-old G2 now P2 after precipitous spontaneous vaginal delivery at 37 weeks and 4 days on 09/05/21. Patient was admitted for induction due to oligohydramnios. She received Cervidil. After 12 hours Cervidil was removed and she progressed into labor on her own. Active labor began at the time of spontaneous rupture of membranes with clear fluid. Penicillin was running at the time of delivery though she did not get the full dose. She delivered a vigorous female infant. A second-degree perineal laceration was repaired in the usual fashion. course uncomplicated. Breast-feeding was going well without concerns in the . She was ambulating, voiding and passing flatus. Pain controlled with Tylenol and ibuprofen. Vaginal bleeding was light to moderate. Patient was advised to call for fevers, severe pain or bleeding through more than a pad an hour. She will follow-up in clinic in 6 weeks. Peripartum Data Delivery Method: Natural Vaginal Laceration Description: Perineal - 2nd Degree complications: none 1: Gender: Female Disposition of : home Status at Discharge Cognitive/behavioral status at discharge: at baseline, oriented Functional status at discharge: independent ambulation Overall status at discharge: patient is back to baseline Time Spent with Patient Time attestation: Total time spent providing and/or coordinating discharge services: Objective Labs Result Diagrams: 09/04/21 16:00 Exam Vital Signs (past 8 hours): Temperature 97.4? blood pressure 109/60 heart rate 74 respirations 16 General: Awake and alert, no acute distress. HEENT: NCAT, EOMI, moist oral mucosa CV: Regular rate and rhythm, no murmurs, rubs or gallops Lungs: CTAB, no wheezes, rales, or rhonchi Abdomen: Soft, nontender; bowel tones active; uterus firm 2 cm below umbilicus Extremities: Warm, no edema Discharge Plan Discharge Plan Patient Disposition: Home Discharge orders & Medications Prescriptions: Continued prenat.vits,jasvir,[id number] Tablet 1 tab PO DAILY 0RF No Action docusate sodium 100 mg capsule 100 mg PO DAILY Qty: 30 0RF ibuprofen 600 mg tablet 600 mg PO Q6HR PRN (Reason: Pain, Mild (1-3)) Qty: 30 0RF Follow up/Referrals: Mikaela Beltran DO [Primary Care Provider] - 6 Weeks (Call [phone] on Saturday 09/08 to make an appointment to see Dr Beltran in 6 weeks. Call woith any questions or concerns) Diet/Activity/Treatments Diet: Diet as Tolerated Skin/Wound/Dressing Care Report to your healthcare provider any signs of infection, such as:: chills, fever, night sweats, increased pain, unusual drainage and unusual redness Visit Report/Discharge Packet Stand Alone Forms: Discharge: Care Visit Report Forms: Patient Portal/API, Stroke Signs & Symptoms Discharge Data Primary Care Provider: Mikaela Beltran
[2021-09-06 10:38] VITALS: BP 102/63; PULSE 68; TEMP 36.9
== END 2021-09-06 12:20 | disposition home or self-care (01) | DRG 560 ==
PROVIDERS: Admitting Provider Family Medicine; PCP Family Medicine; Referring Provider Family Medicine; Visit Provider Family Medicine
DX: O41.03X0 Oligohydramnios, third trimester, not applicable or unspecified (principal); Z3A.37 37 weeks gestation of pregnancy; Z37.0 Single live birth; O99.824 Streptococcus B carrier state complicating childbirth; Z20.822 Contact with and (suspected) exposure to COVID-19; O70.1 Second degree perineal laceration during delivery
CPT/HCPCS: 36415; 59025; 59050; 59200; 59409; 76815; 85025; 86850; 86900; 86901; 87635; C9803; G0379; J2540; J2590; J3010

== ENCOUNTER 2021-09-11 04:26 | Emergency (ER) | payer OTHER, MEDICAID, SELFPAY ==
[2021-09-11 04:10] VITALS: BP 119/72; PULSE 66; RESP 18; TEMP 36.6; O2SAT 96
--- NOTE | 2021-09-11 04:24 | DI.US.S_ITS ---
PROCEDURE: US PELVIC COMPLETE INDICATIONS: LEFT PELVIC PAIN 6 DAYS POST TECHNIQUE: Real-time scanning was performed of the pelvic organs, with image documentation. Additional endovaginal scanning was necessary due to incomplete visualization of the adnexal and endometrial structures by transabdominal scanning. COMPARISON: None. FINDINGS: Uterus: Uterus is anteverted and normal in size at 15.8 x 8.6 x 12.2 cm. The myometrium is homogeneous. The endometrium measures 10 mm combined thickness. Scrutiny is given to retained products of conception. None can be seen. No abnormal hypervascularity can be seen along the endometrial stripe. Ovaries: The right ovary measures 3 x 1.7 x 1.8 cm. The left ovary measures 3.1 x 1.5 x 2.2 cm. The ovaries have a normal sonographic appearance. No adnexal masses are seen. Other: No pathologic free abdominal or pelvic fluid. IMPRESSION: Unremarkable postmortem ultrasound, without findings of retained products of conception. Normal appearing ovaries. Note: No significant discrepancy from the preliminary report. We strive to produce accurate, complete, and clear reports of imaging services. To assist us in improving patient care, this report was composed using standard report templates and voice recognition software. Therefore, it may contain abnormal punctuation, insertions and/or omissions. Occasional wrong-word or sound-alike substitutions may occur. Though we review the report and make efforts to correct it, we do recommend that the report be read carefully in proper context to recognize any text inaccuracies. Dictated by: Gautam Nuñez M.D. on 09/11/2021 at 8:16 Approved by: Gautam Nuñez M.D. on 09/11/2021 at 8:17
[2021-09-11 04:26] VITALS: BP 119/72; PULSE 65; O2SAT 94
--- NOTE | 2021-09-11 04:28 | PC.NURSE ---
She denied wanting any pain medication to DR Middleton.
[2021-09-11 04:30] VITALS: BP 114/75; PULSE 64; O2SAT 95
--- NOTE | 2021-09-11 04:37 | ED.ABDPAIN ---
HPI - Abdominal Pain General Chief Complaint: Abdominal Pain Stated Complaint: abd pain Time Seen by Provider: 09/11/21 04:33 Source: patient and EMS Mode of arrival: EMS History of Present Illness HPI narrative: Patient is a 36-year-old female presenting day 6. She had a induction on 09/04/2021 secondary to oliohydramnios. He had spontaneous vaginal delivery at 37 weeks and 4 days on 09/05/2021. She is currently breast feeding. She did wake up with sudden onset of left-sided suprapubic pain. She has never had this type of pain before. She did take some ibuprofen prior to arrival his feet to help. She denies any significant vaginal bleeding no fevers or chills. No nausea or vomiting. Related Data Home Medications Medication Instructions Recorded Confirmed prenat.vits,jasvir,[id number] 1 tab PO DAILY 07/08/21 09/04/21 Previous Rx's Medication Instructions Recorded docusate sodium 100 mg capsule 100 mg PO DAILY #30 cap 09/06/21 ibuprofen 600 mg tablet 600 mg PO Q6HR PRN #30 tab 09/06/21 Allergies Allergy/AdvReac Type Severity Reaction Status Date / Time No Known Drug Allergies Allergy Unverified 07/08/21 12:12 Review of Systems Review of Systems Narrative: GENERAL: Denies chills, fatigue, malaise, fever, sweats, travel HEENT: Denies sinus pain, ear pain, sore throat, difficulty swallowing, neck pain RESPIRATORY: Denies dyspnea, cough, wheezing, hemoptysis, sputum. CARDIOVASCULAR: Denies chest pain, palpitations, orthopnea, edema GASTROINTESTINAL: Denies nausea, vomiting, abdominal pain, diarrhea, constipation, melena. MANUFACTURING MAINTENANCE TECHNICIAN: See HPI : Denies dysuria, frequency, incontinence, hematuria, urinary retention, flank pain. MUSCULOSKELETAL: Denies weakness, joint pain, or bony pain SKIN: No rash, no erythema, no pruritus NEUROLOGIC: Denies weakness, dizziness, headache, numbness, change in speech, confusion PSYCHIATRIC: No concerning psychosocial issues. 12 point review of systems is negative except for those stated above and HPI Patient History Medical History Allergic rhinitis Hives Oligohydramnios antepartum Pityriasis rosea (spontaneous vaginal delivery) (~10/2017) Surgical History [place] teeth extracted Family History Father Healthy adult male Family estrangement Mother Healthy female adult Family estrangement Grandfather No problems noted. Grandmother No problems noted. Grandfather No problems noted. Grandmother No problems noted. Social History marital status: number of children: 1 household members: children lives independently: Yes (In a Hotel ) caregiver/support person: No pets and animals: No occupational status: unemployed current occupational exposures/hazards: No special pipo needs: No Smoking Status: Never smoker Tobacco: How many years used: 13 quit status: quit date established (04/13/2017) second hand exposure: No ( smokes : but outside) alcohol intake: former (Pre- : 1-2/week) substance use type: does not use Smoking Status: Never smoker Substance Use Type: does not use Exam Initial Vital Signs Initial Vital Signs: Vital Signs Temperature 97.9 F 09/11/21 04:10 Pulse Rate 66 09/11/21 04:10 Respiratory Rate 18 09/11/21 04:10 Blood Pressure 119/72 09/11/21 04:10 Pulse Oximetry 96 09/11/21 04:10 GENERAL: Alert well-appearing obese year old female in [no acute] distress. HEENT: Head atraumatic,EOMI, pupils reactive, face symmetric, [moist] mucous membranes CARDIOVASCULAR: Regular rate and rhythm without murmurs, rubs or gallops. RESPIRATORY: Breath sounds equal bilaterally, no wheezes rales or rhonchi. ABDOMEN: Soft, suprapubic slightly to the left tenderness Normoactive bowel sounds all 4 quadrants. No guarding or rebound. : No CVA tenderness EXTREMITIES: Normal range of motion, no clubbing or edema. Neurovascularly intact NEUROLOGICAL: Alert and oriented x4.Normal gait and speech. SKIN: Warm, dry, no laceration, no petechiae, no rashes or lesions. Course Orders Ordered: ED Orders 09/11/21 04:18 CBC Auto Diff [Complete Blood Count AUTO DIFF] Stat CMP [Comprehensive Metabolic Panel] Stat 09/11/21 04:24 US pelvic complete Stat Vital Signs Vital signs: Vital Signs - 8 hr 09/11/21 04:10 09/11/21 04:26 09/11/21 04:30 Temperature 97.9 F Pulse Rate 66 65 64 Respiratory Rate 18 Blood Pressure 119/72 119/72 114/75 Pulse Oximetry 96 94 95 09/11/21 05:00 09/11/21 05:30 09/11/21 06:00 Temperature Pulse Rate 60 72 59 L Respiratory Rate Blood Pressure 107/68 95/60 Pulse Oximetry 96 93 91 MDM - Abdominal Pain Lab Data Result diagrams: 09/11/21 04:18 09/11/21 04:18 Labs: Lab Results 09/11/21 09/11/21 Range/Units 04:18 04:18 WBC 5.8 (4.5-11.0) X10^3/uL RBC 3.96 L (4.0-5.2) X10^6/uL Hgb 13.3 (12.0-16.0) g/dL Hct 39.1 (36-46) % MCV 98.7 (80-100) fL MCH 33.6 (26-34) PG MCHC 34.1 (30-36) % RDW 13.2 (11.6-14.8) % Plt Count 243 (150-400) X10^3/uL Neut % (Auto) 56.0 (50-75) % Lymph % (Auto) 34.7 (25-40) % [place] % (Auto) 5.9 (3-14) % Eos % (Auto) 2.9 (2-4) % Baso % (Auto) 0.5 (0-2) % Neut # (Auto) 3200 (4677-5651) /uL Lymph # (Auto) 2000 (3737-1254) /uL [place] # (Auto) 300 (0-900) /uL Eos # (Auto) 200 (0-450) /uL Baso # (Auto) 0 (0-100) /uL Sodium 139 (137-145) mmol/L Potassium 4.3 (3.4-5.1) mmol/L Chloride 108 H (98-107) mmol/L Carbon Dioxide 23 (22-32) mmol/L BUN 17 (7-17) mg/dL Creatinine 0.38 L (0.52-1.04) mg/dL Estimated GFR > 60.0 (>60) mL/min BUN/Creatinine Ratio 44.7 H (6-22) Glucose 96 (70-100) mg/dL Calcium 10.8 H (8.4-10.2) mg/dL Total Bilirubin 0.3 (0.2-1.3) mg/dL AST 23 (14-36) IU/L ALT 10 (<35) IU/L Alkaline Phosphatase 96 (38-126) U/L Total Protein 7.3 (6.3-8.2) g/dL Albumin 3.9 (3.5-5.0) g/dL Globulin 3.4 (1.7-4.1) g/dL Albumin/Globulin Ratio 1.1 (1.0-2.8) Imaging Data US - MANUFACTURING MAINTENANCE TECHNICIAN: Radiologist's Impression: Preliminary report heterogeneous. A needle was the acute abnormality is demonstrated MDM Narrative Medical decision making narrative: Patient is no longer having any pain now in the emergency department. She is not actively bleeding. Ultrasound does not show any sign of retained products. She said she was nursing are just finished nursing when she had a cramp. She is aware that while nursing she can have some cramps however she said this was quite different and very strong. At this time her abdomen is reexamined in is soft and nontender. The pain that was there is no longer there. She is afebrile. No leukocytosis. Unlikely to be endometritis, although still possible. Work is overall reassuring. This time no good explanation of what the pain was. However I recommend that if it returns that she come back to the emergency department. Discharge Plan Departure Patient Disposition: Home Clinical Impression: Abdominal pain Instructions: DI for Abdominal Pain-Adult Activity Restrictions/Additional Instructions: *You have been diagnosed with abdominal pain with *What to do: At this time I do not have explanation for what caused your abdominal pain. *Continue to take medications as directed *Follow up with your primary care provider in 2-3 days *Return to ER if you should have increasing abdominal pain, worsening vaginal bleeding, dizziness lightheadedness, fever or any new, worsening or concerning symptoms Prescriptions: No Action docusate sodium 100 mg capsule 100 mg PO DAILY Qty: 30 0RF ibuprofen 600 mg tablet 600 mg PO Q6HR PRN (Reason: Pain, Mild (1-3)) Qty: 30 0RF prenat.vits,jasvir,[id number] Tablet 1 tab PO DAILY 0RF Referrals: Mikaela Beltran DO [Primary Care Provider] -
[2021-09-11 04:45] LABS: Add Manual Diff / Slide Review NO; Basophils Absolute Auto 0 /uL (0-100); Basophils Percent Auto 0.5 % (0-2); Eosinophils Absolute Auto 200 /uL (0-450); Eosinophils Percent Auto 2.9 % (2-4); Hematocrit 39.1 % (36-46); Hemoglobin 13.3 g/dL (12.0-16.0); Lymphocytes Absolute Auto 2000 /uL (1100-4500); Lymphocytes Percent Auto 34.7 % (25-40); Mean Corpuscular HGB Conc 34.1 % (30-36); Mean Corpuscular Hemoglobin 33.6 PG (26-34); Mean Corpuscular Volume 98.7 fL (80-100); Monocytes Absolute Auto 300 /uL (0-900); Monocytes Percent Auto 5.9 % (3-14); Neutrophils Absolute Auto 3200 /uL (1500-7000); Platelet Count 243 X10^3/uL (150-400); Red Blood Cell Count 3.96 X10^6/uL (4.0-5.2); Red Cell Distribution Width 13.2 % (11.6-14.8); White Blood Cell Count 5.8 X10^3/uL (4.5-11.0)
[2021-09-11 04:51] LABS: Alanine Aminotransferase 10 IU/L (<35); Albumin 3.9 g/dL (3.5-5.0); Albumin Globulin Ratio 1.1 (1.0-2.8); Alkaline Phosphatase 96 U/L (38-126); Aspartate Aminotransferase 23 IU/L (14-36); BUN Creatinine Ratio 44.7 (6-22); Bilirubin Total 0.3 mg/dL (0.2-1.3); Blood Urea Nitrogen 17 mg/dL (7-17); Calcium 10.8 mg/dL (8.4-10.2); Carbon Dioxide 23 mmol/L (22-32); Chloride 108 mmol/L (98-107); Estimated Glomerular Filt Rate > 60.0 mL/min (>60); Globulin 3.4 g/dL (1.7-4.1); Glucose 96 mg/dL (70-100); HEMOLYSIS 37 (0-50); Potassium 4.3 mmol/L (3.4-5.1); Sodium 139 mmol/L (137-145); Total Protein 7.3 g/dL (6.3-8.2)
[2021-09-11 05:00] VITALS: BP 107/68; PULSE 60; O2SAT 96
[2021-09-11 05:30] VITALS: PULSE 72; O2SAT 93
[2021-09-11 06:00] VITALS: BP 95/60; PULSE 59; O2SAT 91
[2021-09-11 07:28] LABS: Bacteria Urine None Seen; RBC Urine 5-10/HPF (0-5/HPF); Squamous Epithelial Cell Urine 0-1 /HPF (0-5/HPF); WBC Urine 1-5/HPF (0-5/HPF)
[2021-09-11 07:42] LABS: Culture Indicated Urine Cult Not Indicated
== END 2021-09-11 06:54 | disposition home or self-care (01) ==
PROVIDERS: Emergency Provider Emergency Medicine; PCP Family Medicine
DX: O90.89 Other complications of the puerperium, not elsewhere classified (principal); R10.32 Left lower quadrant pain
CPT/HCPCS: 76856; 80053; 81015; 85025; 99283; 99284

== ENCOUNTER → 2022-02-08 10:48 | Outpatient (CLI) | payer OTHER, MEDICAID, SELFPAY ==
[2022-02-08 11:18] LABS: COVID19 -Nasal RAPID Negative (Negative)
== END ==
PROVIDERS: PCP Family Medicine; Visit Provider Nurse Practitioner Family
DX: Z20.822 Contact with and (suspected) exposure to COVID-19 (principal); J02.9 Acute pharyngitis, unspecified
CPT/HCPCS: 87070; 87635; 87880

== ENCOUNTER 2022-02-19 13:35 | Emergency (ER) | payer OTHER, MEDICAID, SELFPAY ==
[2022-02-19 13:40] VITALS: BP 109/71; PULSE 61; RESP 18; TEMP 36.4; O2SAT 96; BMI 20.9
[2022-02-19 14:24] LABS: Add Manual Diff / Slide Review NO; Basophils Absolute Auto 0 /uL (0-100); Basophils Percent Auto 0.8 % (0-2); Eosinophils Absolute Auto 100 /uL (0-450); Eosinophils Percent Auto 2.2 % (2-4); Hematocrit 36.3 % (36-46); Hemoglobin 12.5 g/dL (12.0-16.0); Lymphocytes Absolute Auto 1900 /uL (1100-4500); Lymphocytes Percent Auto 42.3 % (25-40); Mean Corpuscular HGB Conc 34.5 % (30-36); Mean Corpuscular Hemoglobin 32.2 PG (26-34); Mean Corpuscular Volume 93.5 fL (80-100); Monocytes Absolute Auto 300 /uL (0-900); Monocytes Percent Auto 5.8 % (3-14); Neutrophils Absolute Auto 2200 /uL (1500-7000); Neutrophils Percent Auto 48.9 % (50-75); Platelet Count 215 X10^3/uL (150-400); Red Blood Cell Count 3.88 X10^6/uL (4.0-5.2); White Blood Cell Count 4.5 X10^3/uL (4.5-11.0)
[2022-02-19 14:32] LABS: Potassium 4.1 mmol/L (3.4-5.1)
[2022-02-19 14:33] LABS: Alanine Aminotransferase 8 IU/L (<35); Albumin 4.4 g/dL (3.5-5.0); Albumin Globulin Ratio 1.4 (1.0-2.8); Alkaline Phosphatase 51 U/L (38-126); Aspartate Aminotransferase 23 IU/L (14-36); BUN Creatinine Ratio 27.7 (6-22); Bilirubin Total 0.6 mg/dL (0.2-1.3); Blood Urea Nitrogen 13 mg/dL (7-17); Carbon Dioxide 26 mmol/L (22-32); Chloride 111 mmol/L (98-107); Estimated Glomerular Filt Rate > 60 mL/min (>60); Globulin 3.2 g/dL (1.7-4.1); Glucose 107 mg/dL (70-100); HEMOLYSIS 30 (0-50); Sodium 142 mmol/L (137-145); Total Protein 7.6 g/dL (6.3-8.2)
[2022-02-19 15:00] VITALS: BP 106/62; PULSE 68; RESP 18; O2SAT 99
--- NOTE | 2022-02-19 15:21 | ED.GIBLEED ---
HPI - GI Bleed <RUPERT Stewart - Last Filed: 02/19/22 18:07> General Chief complaint: Abdominal Pain Stated complaint: Bloody stool x 7 days Time Seen by Provider: 02/19/22 15:10 Source: patient Mode of arrival: Ambulatory History of Present Illness HPI Narrative: This is a 37-year-old female presents to the emergency department 1 week bright red blood in her stool, and states that today she felt lightheaded. He endorses that she is her 5-month-old child, denies any nausea, vomiting, diarrhea, or abdominal pain. She denies any rectal pain or known hemorrhoid. She denies any dysuria, flank pain, blood in her urine and states that she has not had a history of this in the past. Patient denies any pain with defecation, changes to her stools, any new medications, any increased stress, denies any vomiting, fever, denies any other symptom at all. She states that she is well-hydrated. Related Data Home Medications Medication Instructions Recorded Confirmed prenat.vits,jasvir,[id number] 1 tab PO DAILY 07/08/21 02/08/22 Previous Rx's Medication Instructions Recorded clobetasol 0.05 % topical cream 1 applic TOPICAL DAILY #30 g 10/21/21 norethindrone (contraceptive) 0.35 0.35 mg PO DAILY #84 tab 12/16/21 mg tablet hydrocortisone acetate 30 mg 30 mg [place] BEDTIME PRN #12 ea 02/19/22 rectal suppository (Hemmorex-HC) Allergies Allergy/AdvReac Type Severity Reaction Status Date / Time No Known Drug Allergies Allergy Unverified 02/08/22 10:49 Review of Systems <RUPERT Stewart - Last Filed: 02/19/22 18:07> Review of Systems Narrative: General: Denies fever, chills, malaise, sweats, fatigue Head/Neck: denies headache, neck pain, dizziness Eyes: denies visual changes, eye pain Cardio: denies chest pain, palpitations, edema Respiratory: denies dyspnea, cough, orthopnea GI: denies abdominal pain, nausea, vomiting, or diarrhea, endorses bright red blood in her stool for a few days : denies dysuria, hematuria, urinary retention, frequency or incontinence, denies any current menses due to MSK: denies joint pain, muscle weakness Skin: denies rash, itching, skin lesions or other Neuro: denies numbness, tingling Patient History <RUPERT Stewart - Last Filed: 02/19/22 18:07> Medical History Allergic rhinitis Hives Pityriasis rosea (spontaneous vaginal delivery) (~10/2017) Surgical History [place] teeth extracted Family History Father Healthy adult male Family estrangement Mother Healthy female adult Family estrangement Grandfather No problems noted. Grandmother No problems noted. Grandfather No problems noted. Grandmother No problems noted. Social History marital status: number of children: 1 household members: children lives independently: Yes (In a Hotel ) caregiver/support person: No pets and animals: No occupational status: unemployed current occupational exposures/hazards: No special pipo needs: No Smoking Status: Never smoker Tobacco: How many years used: 13 quit status: quit date established (04/13/2017) second hand exposure: No ( smokes : but outside) alcohol intake: former (Pre- : 1-2/week) substance use type: does not use Smoking Status: Never smoker Substance Use Type: does not use Exam <RUPERT Stewart - Last Filed: 02/19/22 18:07> Narrative Exam Narrative: Independently reviewed vitals signs and nursing notes. General: cooperative, comfortable, in no acute distress, well developed and well groomed Head: atraumatic, symmetrical facial expressions Neck: supple, atraumatic, without lymphadenopathy. Eyes: pupils equal round and reactive, EOMI, conjunctiva normal Nose: nares patent, no rhinorrhea Mouth/Throat: uvula midline, moist mucus membranes Cardiovascular: regular rate and rhythm, no peripheral edema, warm extremities Respiratory: normal effort, able to speak in complete sentences, no audible wheezing, stridor, or rales. No retractions or tachypnea. GI: abdomen soft, nontender to palpation, nondistended, no masses, no exquisite tenderness with exam, without guarding or rebound. [place]: No external hemorrhoid palpable, mild amount of tissue prolapse, no tenderness, no bleeding from rectum currently MSK: moves all extremities, ambulatory w/steady gait, neurovascularly intact, no weakness Skin: brisk capillary refill, no rash, no erythema Neuro: normal speech and cognition, A&O x3, normal tone Psych: mental status is grossly normal, congruent mood, normal affect, pleasant and cooperative Initial Vital Signs Initial Vital Signs: Vital Signs Temperature 97.5 F L 02/19/22 13:40 Pulse Rate 61 02/19/22 13:40 Respiratory Rate 18 02/19/22 13:40 Blood Pressure 109/71 02/19/22 13:40 Pulse Oximetry 96 02/19/22 13:40 <Laura Middleton DO - Last Filed: 02/24/22 07:26> Initial Vital Signs Initial Vital Signs: Vital Signs Temperature 97.5 F L 02/19/22 13:40 Pulse Rate 61 02/19/22 13:40 Respiratory Rate 18 02/19/22 13:40 Blood Pressure 109/71 02/19/22 13:40 Pulse Oximetry 96 02/19/22 13:40 Course <BALDOMERO StewartP - Last Filed: 02/19/22 18:07> Orders Ordered: ED Orders 02/19/22 14:03 Complete Blood Count AUTO DIFF Stat Comprehensive Metabolic Panel Stat 02/19/22 14:11 EKG-12 Lead Stat Vital Signs Vital signs: Vital Signs - 8 hr 02/19/22 13:40 02/19/22 15:00 Temperature 97.5 F L Pulse Rate 61 68 Respiratory Rate 18 18 Blood Pressure 109/71 106/62 Pulse Oximetry 96 99 <DO Zoe Joseph Filed: 02/24/22 07:26> Orders Ordered: ED Orders 02/19/22 14:03 Complete Blood Count AUTO DIFF Stat Comprehensive Metabolic Panel Stat 02/19/22 14:11 EKG-12 Lead Stat Vital Signs Vital signs: Vital Signs - 8 hr 02/19/22 13:40 02/19/22 15:00 Temperature 97.5 F L Pulse Rate 61 68 Respiratory Rate 18 18 Blood Pressure 109/71 106/62 Pulse Oximetry 96 99 MDM - GI Bleed <Lakeishamaria teresa Soriano, [facility] - Last Filed: 02/19/22 18:07> Lab Data Result diagrams: 02/19/22 14:03 02/19/22 14:03 Labs: Lab Results 02/19/22 02/19/22 Range/Units 14:03 14:03 WBC 4.5 (4.5-11.0) X10^3/uL RBC 3.88 L (4.0-5.2) X10^6/uL Hgb 12.5 (12.0-16.0) g/dL Hct 36.3 (36-46) % MCV 93.5 (80-100) fL MCH 32.2 (26-34) PG MCHC 34.5 (30-36) % RDW 12.0 (11.6-14.8) % Plt Count 215 (150-400) X10^3/uL Neut % (Auto) 48.9 L (50-75) % Lymph % (Auto) 42.3 H (25-40) % [place] % (Auto) 5.8 (3-14) % Eos % (Auto) 2.2 (2-4) % Baso % (Auto) 0.8 (0-2) % Neut # (Auto) 2200 (2985-7824) /uL Lymph # (Auto) 1900 (1586-0044) /uL [place] # (Auto) 300 (0-900) /uL Eos # (Auto) 100 (0-450) /uL Baso # (Auto) 0 (0-100) /uL Sodium 142 (137-145) mmol/L Potassium 4.1 (3.4-5.1) mmol/L Chloride 111 H (98-107) mmol/L Carbon Dioxide 26 (22-32) mmol/L BUN 13 (7-17) mg/dL Creatinine 0.47 L (0.52-1.04) mg/dL Estimated GFR > 60 (>60) mL/min BUN/Creatinine Ratio 27.7 H (6-22) Glucose 107 H (70-100) mg/dL Calcium 9.0 (8.4-10.2) mg/dL Total Bilirubin 0.6 (0.2-1.3) mg/dL AST 23 (14-36) IU/L ALT 8 (<35) IU/L Alkaline Phosphatase 51 (38-126) U/L Total Protein 7.6 (6.3-8.2) g/dL Albumin 4.4 (3.5-5.0) g/dL Globulin 3.2 (1.7-4.1) g/dL Albumin/Globulin Ratio 1.4 (1.0-2.8) Point of Care Testing Test Results Negative Urine Dip Bedside Urine Glucose Negative Bedside Urine Bilirubin - Negative Bedside Urine Ketone - Negative Urine Specific [place] 1.010 Bedside Urine Occult Blood - Negative Bedside Urine pH 6.0 Bedside Urine Protein - Negative Bedside Urine Urobilinogen - Negative Bedside Urine Nitrite - Negative Bedside Urine Leukocytes - Negative Esterase MDM Narrative Medical decision making narrative: This is a 37-year-old female who is and is breast-feeding a 5-month-old and has not started menstruating yet, she presents to the emergency department for bright red blood in her stool for the last week. She denies any abdominal pain, nausea, vomiting, fever, diarrhea, rectal pain, unknown hemorrhoid, or any other symptom. She states that she is well hydrated, tolerating p.o. intake without any pain, states that her stomach is ?rumbling? but denies any other symptom. She states that her bowel movements are not painful, and this is the 1st time she has had blood in her stool. Patient did not have any external hemorrhoids on exam, her lab work is reassuring, hemoglobin 12.5, hematocrit 36.3 these are compared to her last labs on 09/11/2021 of a hemoglobin of 13.3, hematocrit of 39.1. No other significant findings on her lab work, UA was negative for no nitrites, blood, or leukocytes. This is most likely internal hemorrhoid bleeding but could also be colitis of other forms. This could be ulcerative colitis, Crohn's, IBS, infectious, diverticular, or other. Patient had a nontender abdominal exam, her vital signs are within normal limits, she otherwise is not having any significant symptoms that are making her ill. She was prescribed hydrocortisone suppositories and encouraged to follow-up with her primary care provider for referral for colonoscopy to rule out malignancy. Patient is appropriate and amenable to discharge home. Vital signs are stable on repeat examination is unremarkable. Patient has been informed of results. Patient has been given strict return to ER precautions for any new or worsening symptoms. Patient understands to follow up closely with outpatient providers as instructed. Patient understands plan and agrees to discharge home. All questions and concerns answered at this time. <Laura Middleton DO - Last Filed: 02/24/22 07:26> Lab Data Labs: Lab Results 02/19/22 02/19/22 Range/Units 14:03 14:03 WBC 4.5 (4.5-11.0) X10^3/uL RBC 3.88 L (4.0-5.2) X10^6/uL Hgb 12.5 (12.0-16.0) g/dL Hct 36.3 (36-46) % MCV 93.5 (80-100) fL MCH 32.2 (26-34) PG MCHC 34.5 (30-36) % RDW 12.0 (11.6-14.8) % Plt Count 215 (150-400) X10^3/uL Neut % (Auto) 48.9 L (50-75) % Lymph % (Auto) 42.3 H (25-40) % [place] % (Auto) 5.8 (3-14) % Eos % (Auto) 2.2 (2-4) % Baso % (Auto) 0.8 (0-2) % Neut # (Auto) 2200 (8101-4447) /uL Lymph # (Auto) 1900 (4840-7157) /uL [place] # (Auto) 300 (0-900) /uL Eos # (Auto) 100 (0-450) /uL Baso # (Auto) 0 (0-100) /uL Sodium 142 (137-145) mmol/L Potassium 4.1 (3.4-5.1) mmol/L Chloride 111 H (98-107) mmol/L Carbon Dioxide 26 (22-32) mmol/L BUN 13 (7-17) mg/dL Creatinine 0.47 L (0.52-1.04) mg/dL Estimated GFR > 60 (>60) mL/min BUN/Creatinine Ratio 27.7 H (6-22) Glucose 107 H (70-100) mg/dL Calcium 9.0 (8.4-10.2) mg/dL Total Bilirubin 0.6 (0.2-1.3) mg/dL AST 23 (14-36) IU/L ALT 8 (<35) IU/L Alkaline Phosphatase 51 (38-126) U/L Total Protein 7.6 (6.3-8.2) g/dL Albumin 4.4 (3.5-5.0) g/dL Globulin 3.2 (1.7-4.1) g/dL Albumin/Globulin Ratio 1.4 (1.0-2.8) Point of Care Testing Test Results Negative Urine Dip Bedside Urine Glucose Negative Bedside Urine Bilirubin - Negative Bedside Urine Ketone - Negative Urine Specific [place] 1.010 Bedside Urine Occult Blood - Negative Bedside Urine pH 6.0 Bedside Urine Protein - Negative Bedside Urine Urobilinogen - Negative Bedside Urine Nitrite - Negative Bedside Urine Leukocytes - Negative Esterase Discharge Plan Departure Patient Disposition: Home Clinical Impression: Blood present in stool Instructions: DI for Hemorrhoids, DI for Gastrointestinal Bleeding Activity Restrictions/Additional Instructions: *You have been diagnosed with bleeding from your rectum which is most likely from a internal hemorrhoid but could also be from inflammation in your colon, IBS, ulcerative colitis fissure, polyp, or infection. Because you did not have any other symptoms like fever, nausea vomiting, abdominal pain, or diarrhea, it is less likely that this is infectious. Please try the suppositories for the next week to see if there is improvement. You can stop after the bleeding goes away. Please follow-up with Dr. Beltran about this, let her know if this improved or not, and ask for a referral for a colonoscopy. Please return to the emergency department if you have increased bleeding, feels faint, nausea vomiting, or fever. Please try and stay hydrated especially because your nursing as well. Continue to take her vitamins, thank you for trusting us with your care, I hope that you start feeling better soon. *What to do: *Please continue to take your regular medications as directed. [x ] New medication prescriptions sent to your pharmacy: [[facility] ] [ ] New medication written as a paper prescription [ ] No new medications given *Please follow up with your primary care provider in 2-3 days, call for an appointment. Let them know you were seen in the Emergency Department and that we asked that you be seen for follow-up. We will electronically transmit a record of today's note if your PCP is in our system *If you do not have a primary care provider please contact [phone] to establish care with one of the [facility] primary care providers. *Return to Emergency Department if you should have any new, worsening or concerning symptoms, such as [fever greater than 101F, chills, worsening pain, persistent vomiting or other bothersome symptoms] SUMMARY AND RECOMMENDATIONS ?Definition and diagnostic implications ? The term minimal bright red blood per rectum (BRBPR) is used to indicate small amounts of red blood on toilet paper after wiping or a few drops of blood in the toilet bowl after defecation. Small amounts of blood on the surface of the stool is also considered minimal BRBPR, but red blood intermixed with stool is not. Minimal BRBPR suggests a lesion near the anal canal but must be differentiated from a history of melena (which implies upper gastrointestinal or slow proximal colonic bleeding) or maroon stool with intermixed bright red blood. (See 'Definition' above.) ?Etiologies ? Common causes of BRBPR include hemorrhoids, anal fissures, polyps, proctitis, rectal ulcers, and colorectal cancer. Diverticulosis is generally an incidental finding, since diverticular bleeding is usually of greater volume. (See 'Etiologies' above.) ?Clinical assessment ? The goal of the clinical assessment for patients who present with BRBPR is to identify those who are at risk for a serious cause of bleeding and who therefore require additional testing; discriminating such patients can be challenging. The history should be directed to the type of bleeding pattern, systemic symptoms, age, family history, and known bowel conditions. The physical examination should include a digital rectal examination and, when possible, office-based anoscopy or proctoscopy. (See 'Clinical assessment' above.) ?Approach to diagnostic testing ? Diagnostic testing for selected patients may involve either colonoscopy or sigmoidoscopy. Computed tomographic colonography (CTC) is not an appropriate initial investigation but may be useful when colonoscopy is incomplete or contraindicated. (See 'Diagnostic tests' above.) Prescriptions: New hydrocortisone acetate [Hemmorex-HC] 30 mg suppository 30 mg [place] BEDTIME PRN (Reason: hemorrhoids) Qty: 12 0RF No Action clobetasol 0.05 % cream 1 applic topical DAILY Qty: 30 0RF Rx Instructions: Apply sparingly to affected area(s) once daily after bathing norethindrone (contraceptive) 0.35 mg tablet 0.35 mg PO DAILY Qty: 84 3RF prenat.vits,jasvir,[id number] Tablet 1 tab PO DAILY 0RF Referrals: Mikaela Beltran DO [Primary Care Provider] - <Laura Middleton DO - Last Filed: 02/24/22 07:26> Cosign ED Attending Carolinaature Attestation: I was immediately available in the department for consultation. Documentation has been reviewed. I agree with assessment and plan.
== END 2022-02-19 16:01 | disposition home or self-care (01) ==
PROVIDERS: Emergency Medicine; Emergency Provider Nurse Practitioner Critical Care Medicine; PCP Family Medicine
DX: K62.5 Hemorrhage of anus and rectum (principal)
CPT/HCPCS: 36415; 80053; 81003; 81025; 85025; 99283

== ENCOUNTER 2022-06-23 11:34 | Emergency (ER) | payer OTHER, MEDICAID, SELFPAY ==
[2022-06-23 11:37] VITALS: BP 109/70; PULSE 62; RESP 14; TEMP 35.9; O2SAT 97; BMI 20.7
[2022-06-23] MEDS: diphenhydrAMINE 25 MG TABLET PO (11:54)
[2022-06-23] MEDS: predniSONE 20 MG TABLET 40 MG PO (12:23)
[2022-06-23] MEDS: FAMOTIDINE 20 MG TABLET PO (12:23)
--- NOTE | 2022-06-23 12:31 | ED.ALLEREA ---
HPI - Allergic Reaction <Weston Koch PA-C - Last Filed: 06/23/22 20:27> General Chief complaint: Allergic Reaction Stated complaint: allergic reaction insect bite Time Seen by Provider: 06/23/22 11:57 Source: patient Mode of arrival: Ambulatory History of Present Illness HPI narrative: 37-year-old female with past medical history environmental allergies to pollen presents to the ED with 1 day of right-sided swollen upper lip, shakiness. Patient noted a swollen, painful right upper lip this morning upon awakening. Patient is unaware of any bug bites. Patient states she also felt somewhat shaky and lightheaded this morning. Patient denies prior allergic reaction. Patient denies any new foods, cosmetics, detergents. Patient's suspected she had a spider bite and had her come to the ED. no insect was visualized by patient or patient's . Patient denies fever, chills, chest pain, shortness of breath, throat swelling, tongue swelling, wheezing, cough, nausea, vomiting, abdominal pain, syncope. Patient states that her pollen allergy has been worse this year, that she has had to take several doses of Benadryl over the last couple months. Patient does not take Claritin or Zyrtec on a daily basis. Related Data Home Medications Medication Instructions Recorded Confirmed prenat.vits,jasvir,[id number] 1 tab PO DAILY 07/08/21 06/25/22 Previous Rx's Medication Instructions Recorded clobetasol 0.05 % topical cream 1 applic topical DAILY #30 grams 10/21/21 norethindrone (contraceptive) 0.35 0.35 mg PO DAILY #84 tabs 12/16/21 mg tablet ipratropium bromide 42 mcg (0.06 2 spray intranasal QID #15 mL 04/25/22 %) nasal spray ketotifen fumarate 0.025 % (0.035 1 drp EYE-BOTH Q12H #5 mL 04/25/22 %) eye drops peg 3350-electrolytes 236 240 ml PO Q10M #4,000 mL 06/25/22 gram-22.74 gram-6.74 gram-5.86 gram solution (Golytely) Allergies Allergy/AdvReac Type Severity Reaction Status Date / Time No Known Drug Allergies Allergy Verified 06/25/22 13:30 Review of Systems <Weston Koch PA-C - Last Filed: 06/23/22 20:27> Review of Systems ROS Unobtainable: All systems reviewed & are unremarkable except as noted in HPI and below Constitutional Constitutional: Denies chills, Denies fatigue, Denies fever(s), Denies frequent falls, Denies lethargy and Denies weakness Eyes Eyes: Denies change in vision, Denies eye discharge, Denies irritation and Denies loss of vision ENT Ears, Nose, Mouth, and Throat: Denies change in voice, Denies dizziness, Denies neck pain, Denies sore throat and Denies throat swelling Comments: Right upper lip swelling, pain Cardiovascular Cardiovascular: Denies chest pain, Denies irregular heart rhythm, Denies lightheadedness, Denies palpitations, Denies dyspnea, Denies dyspnea on exertion and Denies orthopnea Respiratory Respiratory: Denies cough, Denies dyspnea, Denies dyspnea on exertion and Denies wheezing Gastrointestinal Gastrointestinal: Denies abdominal pain, Denies change in bowel habits, Denies diarrhea, Denies nausea and Denies vomiting Genitourinary Genitourinary: Denies hematuria, Denies flank pain, Denies urinary incontinence and Denies urinary urgency Musculoskeletal Musculoskeletal: Denies back pain, Denies muscle weakness, Denies neck pain, Denies numbness and Denies tingling Integumentary/Breasts Skin/Breast: Denies pruritus, Denies erythema, Denies rash and Denies wounds Neurologic Neurologic: Denies behavioral changes, Denies confusion, Denies dizziness, Denies frequent falls, Denies loss of vision, Denies numbness, Denies tingling and Denies weakness Psychiatric Psychiatric: Denies anxiety, Denies behavioral changes, Denies confusion, Denies depression, Denies homicidal ideation and Denies suicidal ideation Endocrine Endocrine: Denies fatigue, Denies flushing and Denies palpitations Hematologic/Lymphatic Hematologic/Lymphatic: Denies easy bruising Allergic/Immunologic Allergic/Immunologic: Denies urticaria, Denies throat swelling and Denies wheezing Patient History <Weston Koch PA-C - Last Filed: 06/23/22 20:27> Medical History Allergic rhinitis Hives Pityriasis rosea (spontaneous vaginal delivery) (~10/2017) Surgical History [place] teeth extracted Family History Father Healthy adult male Family estrangement Mother Healthy female adult Family estrangement Grandfather No problems noted. Grandmother No problems noted. Grandfather No problems noted. Grandmother No problems noted. Social History marital status: number of children: 1 household members: children lives independently: Yes (In a Hotel ) caregiver/support person: No pets and animals: No occupational status: unemployed current occupational exposures/hazards: No special pipo needs: No Smoking Status: Never smoker Tobacco: How many years used: 13 quit status: quit date established (04/13/2017) second hand exposure: No ( smokes : but outside) alcohol intake: former (Pre- : 1-2/week) substance use type: does not use Smoking Status: Never smoker alcohol intake frequency: holidays/special occasions only Substance Use Type: does not use Exam <Weston Koch PA-C - Last Filed: 06/23/22 20:27> Narrative Exam Narrative: Const General:?cooperative, healthy appearing and comfortable [facility] Head:?normal to inspection Ears:?hearing grossly normal bilaterally Nose:?external nose normal Face and sinus:?normal facial exam and sinuses nontender Mouth:?oral mucosae normal; swelling, tenderness to palpation of right upper lip. Throat:?posterior oropharynx normal; airway is patent Eyes General:?appearance normal, both eyes and all related structures Neck Neck:?normal visual inspection and no lymphadenopathy noted Resp Effort & Inspection:?normal respiratory effort Auscultation:?clear to auscultation bilaterally Cardio Rate:?regular rate Rhythm:?regular rhythm Neuro General:?patient alert, patient awake and patient oriented x3 Initial Vital Signs Initial Vital Signs: Vital Signs Temperature 96.6 F L 06/23/22 11:37 Pulse Rate 62 06/23/22 11:37 Respiratory Rate 14 06/23/22 11:37 Blood Pressure 109/70 06/23/22 11:37 Pulse Oximetry 97 06/23/22 11:37 Oxygen Delivery Method 06/23/22 11:37 <Thee Whelan MD - Last Filed: 08/04/22 08:50> Initial Vital Signs Initial Vital Signs: Vital Signs Temperature 96.6 F L 06/23/22 11:37 Pulse Rate 62 06/23/22 11:37 Respiratory Rate 14 06/23/22 11:37 Blood Pressure 109/70 06/23/22 11:37 Pulse Oximetry 97 06/23/22 11:37 Oxygen Delivery Method 06/23/22 11:37 Course <Weston Koch PA-C - Last Filed: 06/23/22 20:27> Orders Ordered: Discontinued Medications Diphenhydramine HCl (Diphenhydramine 25 Mg Tablet) 25 mg PO NOW ONE Stop: 06/23/22 11:51 Last Admin: 06/23/22 11:54 Dose: 25 mg Documented By: LEONOR Famotidine (Famotidine 20 Mg Tablet) 20 mg PO BID ONE Stop: 06/23/22 12:19 Last Admin: 06/23/22 12:23 Dose: 20 mg Documented By: LEONOR Prednisone (Prednisone 20 Mg Tablet) 40 mg PO NOW ONE Stop: 06/23/22 12:19 Last Admin: 06/23/22 12:23 Dose: 40 mg Documented By: LEONOR Vital Signs Vital signs: Vital Signs - 8 hr 06/23/22 13:09 Pulse Rate 53 L Respiratory Rate 16 Blood Pressure 108/61 Pulse Oximetry 100 Oxygen Delivery Method Room Air <Thee Whelan MD - Last Filed: 08/04/22 08:50> Orders Ordered: Discontinued Medications Diphenhydramine HCl (Diphenhydramine 25 Mg Tablet) 25 mg PO NOW ONE Stop: 06/23/22 11:51 Last Admin: 06/23/22 11:54 Dose: 25 mg Documented By: LEONOR Famotidine (Famotidine 20 Mg Tablet) 20 mg PO BID ONE Stop: 06/23/22 12:19 Last Admin: 06/23/22 12:23 Dose: 20 mg Documented By: LEONOR Prednisone (Prednisone 20 Mg Tablet) 40 mg PO NOW ONE Stop: 06/23/22 12:19 Last Admin: 06/23/22 12:23 Dose: 40 mg Documented By: LEONOR Vital Signs Vital signs: Vital Signs - 8 hr 06/23/22 13:09 Pulse Rate 53 L Respiratory Rate 16 Blood Pressure 108/61 Pulse Oximetry 100 Oxygen Delivery Method Room Air MDM - Allergic Reaction <Weston Koch PA-C - Last Filed: 06/23/22 20:27> MDM Narrative Medical decision making narrative: 37-year-old female with past medical history environmental allergies to pollen presents to the ED with 1 day of right-sided swollen upper lip, shakiness. Concern for allergic reaction versus insect bite versus other. Not concern for anaphylactic reaction given patient does not exhibit multi system symptoms. Will treat with Benadryl, Pepcid, prednisone. Will observe. Patient's symptoms significantly improved with Benadryl, Pepcid, prednisone. Joint decision making with patient, decision was made not to continue prednisone, patient would like to continue breast-feeding her . Patient agrees to continue using Benadryl for symptoms. Discharge patient home with ED return precautions. Patient verbalized understanding. Discharge Plan Departure Patient Disposition: Home Clinical Impression: Allergic reaction Instructions: DI for Adverse Drug Reaction -- Allergic Activity Restrictions/Additional Instructions: You were evaluated in the ED today for a swollen upper lip. Your symptoms are likely due to an allergic reaction to an insect bite or other. You responded well to Benadryl, Pepcid AC. You may continue to take Benadryl at home. Return to the ED if you notice worsening symptoms, tongue swelling, throat swelling, trouble breathing, wheezing, vomiting, abdominal pain. Prescriptions: No Action clobetasol 0.05 % cream 1 applic topical DAILY Qty: 30 0RF Rx Instructions: Apply sparingly to affected area(s) once daily after bathing norethindrone (contraceptive) 0.35 mg tablet 0.35 mg PO DAILY Qty: 84 3RF ipratropium bromide 42 mcg (0.06 %) spray,non-aerosol 2 spray intranasal QID Qty: 15 0RF Rx Instructions: administer into each nostril ketotifen fumarate 0.025 % (0.035 %) drops 1 drp EYE-BOTH Q12H Qty: 5 0RF peg 3350-electrolytes [Golytely] 236-22.74-6.74 -5.86 gram recon soln 240 ml PO Q10M Qty: 4000 0RF Rx Instructions: Take as directed by Physician margo.vits,jasvir,pie-ylpl-axymp Tablet 1 tab PO DAILY Referrals: Mikaela Beltran DO [Primary Care Provider] - Visit Report Forms: Patient Portal/API <Thee Whelan MD - Last Filed: 08/04/22 08:50> Cosign ED Attending Carolinaature Attestation: I was immediately available for consultation of this patient was seen and evaluated by the APC in the department.
[2022-06-23 13:09] VITALS: BP 108/61; PULSE 53; RESP 16; O2SAT 100
== END 2022-06-23 13:22 | disposition home or self-care (01) ==
PROVIDERS: Emergency Provider Student in an Organized Health Care Education/Training Program; PCP Family Medicine
DX: T78.40XA Allergy, unspecified, initial encounter (principal)
CPT/HCPCS: 99283; A9270

== ENCOUNTER → 2022-08-03 11:51 | Outpatient (CLI) | payer OTHER, MEDICAID, SELFPAY ==
[2022-08-03 14:00] LABS: COVID19 -Nasal RAPID Negative (Negative)
== END ==
PROVIDERS: PCP Family Medicine; Visit Provider Surgery
DX: Z20.822 Contact with and (suspected) exposure to COVID-19 (principal); Z01.812 Encounter for preprocedural laboratory examination
CPT/HCPCS: 87635; C9803

== ENCOUNTER 2022-08-04 09:41 | Day surgery (SDC) | payer OTHER, MEDICAID, SELFPAY ==
[2022-08-04] VITALS (7 sets, daily range): BP systolic 88–99; BP diastolic 52–63; PULSE 53–73; RESP 10–54; TEMP 36.2–36.7; O2SAT 17–98
[2022-08-04] MEDS: LACTATED RINGERS 1,000 ML 200 ML IV (10:15)
--- NOTE | 2022-08-04 10:27 | P.HP_ITS ---
History of Present Illness History of Present Illness Date Patient Seen: 08/04/22 Time Patient Seen: 10:27 Chief complaint: Colonoscopy Narrative: 37-year-old woman here for diagnostic colonoscopy for rectal bleeding. Please refer to the H&P from June 2022 further detail. In the interval rectal bleeding has stopped. Patient History Medical History Allergic rhinitis Hives Pityriasis rosea (spontaneous vaginal delivery) (~10/2017) Surgical History [place] teeth extracted Family & Social History Family History Father Healthy adult male Family estrangement Mother Healthy female adult Family estrangement Grandfather No problems noted. Grandmother No problems noted. Grandfather No problems noted. Grandmother No problems noted. Social History: household members significant other,children lives independently Yes: In a Hotel caregiver/support person No Tobacco & Substance use: Smoking Status Never smoker alcohol intake former alcohol intake frequency holiday/special occasion Substance Use Type does not use Meds Home Medications and Allergies Home Medications Medication Instructions Recorded Confirmed Type prenat.vits,jasvir,[id number] 1 tab PO DAILY 07/08/21 08/04/22 History norethindrone (contraceptive) 0.35 0.35 mg PO DAILY #84 tabs 12/16/21 08/04/22 Rx mg tablet peg 3350-electrolytes 236 240 ml PO Q10M #4,000 mL 06/25/22 08/04/22 Rx gram-22.74 gram-6.74 gram-5.86 gram solution (Golytely) Allergies Allergy/AdvReac Type Severity Reaction Status Date / Time No Known Drug Allergies Allergy Verified 08/04/22 09:56 Exam Vital Signs (past 8 hours): - 08/04/22 10:11 Temperature 98.0 F Pulse Rate 60 Respiratory Rate 16 Blood Pressure 96/63 Pulse Oximetry 97 Oxygen Delivery Method Room Air Oxygen Delivery Method Room Air Narrative Exam Narrative: General adult woman alert oriented no acute distress Abdomen soft nontender nondistended Assessment & Plan Assessment and plan (1) Rectal Hemorrhage: Status: Acute Assessment & Plan narrative: Colonoscopy is recommended for evaluation of rectal bleeding. Technical details were discussed. Risks, benefits, alternatives explained. Risks including but not limited to myocardial infarction, aspiration, bleeding, pain, missed lesion, incomplete examination, need for further radiographic studies, colonic perforation, and need for major abdominal surgery were discussed. All questions were answered to their satisfaction, and they are in agreement with this plan. Time Spent With Patient Critical Care time: I spent a total of [] minutes of critical care time on this patient's care today; this time is exclusive of procedural time.
--- NOTE | 2022-08-04 10:29 | PM.OP.COLON ---
Operative Date/Time/Diagnoses Date of procedure: 08/04/22 Time of procedure: 10:30 Pre-op diagnosis: Rectal bleeding Post-op diagnosis: same Procedure & Clinicians Study performed: Colonoscopy Same procedure as scheduled: Yes Indications: Rectal bleeding Surgeon: Lopez Darby Procedure Notes Procedure in detail: Medications: Conscious sedation using 6mg IV midazolam and 200mcg IV of fentanyl The history and physical was performed/updated and the patient is ASA class is 1. The procedure was discussed in detail with the patient. Potential risks complications including infection, bleeding, missed diagnosis, perforation, need for surgery, and were explained. Their questions were answered and informed consent was obtained. Patient was brought to the procedure room and placed standard monitoring equipment. The patient's vital signs were monitored continuously throughout the entire procedure. Prior to starting time-out was performed. The patient was placed in the left lateral recumbent position. Procedural sedation was administered. Examination began with a thorough inspection of the perianal area there was no evidence of fissures, fistulae, external hemorrhoids or cutaneous malignancy. The colonoscopy scope was then placed into the anal canal and was advanced to the cecum, which was identified by the ileocecal valve, the appendiceal orifice and the confluence of the taenia. The scope was then slowly withdrawn examining colon thoroughly in all directions, irrigating it of any residual stool. FINDINGS 1. Normal healthy colon. No masses or polyps 2. Minimal hemorrhoidal tissue. insufficient for any band placement The patient tolerated the procedure well. They will be discharged once criteria are met. The prep was of good/excellent quality. The withdrawl time was 7 minutes. The sedation time was 20 minutes. Specimen(s): none sent Complications: none Impression: Normal colonoscopy Post-procedure Recommendations: Colonoscopy in 10 years and High fiber diet Disposition: same day surgery
[2022-08-04] MEDS: MIDAZOLAM 5 MG/5 ML VIAL IV (10:56)
[2022-08-04] MEDS: fentaNYL 100 MCG/2 ML INJ IV (10:57)
== END 2022-08-04 11:52 | disposition home or self-care (01) ==
PROVIDERS: PCP Family Medicine; Referring Provider Surgery; Visit Provider Surgery
PROC: 0DJD8ZZ Inspection of Lower Intestinal Tract, Via Natural or Artificial Opening Endoscopic (ICD-10-PCS; CPT 45378; principal; 2022-08-04 10:45)
DX: K62.5 Hemorrhage of anus and rectum (principal); K64.9 Unspecified hemorrhoids
CPT/HCPCS: 45378; 99152; J2250; J3010

== ENCOUNTER 2023-01-03 20:04 | Emergency (ER) | payer OTHER, MEDICAID, SELFPAY ==
[2023-01-03 20:12] VITALS: BP 135/84; PULSE 88; RESP 16; TEMP 36.7; O2SAT 98; BMI 19.3
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
[2023-01-03] MEDS: HYDROCODONE/ACET 5/325 PREPACK 1 BOTTLE MISC (22:05)
[2023-01-03] MEDS: TET,DIPH,PERTUSS(ACELL),VAC/PF 0.5 ML SYRINGE IM (22:05)
[2023-01-03 22:12] VITALS: BP 118/65; PULSE 68; O2SAT 98
== END 2023-01-03 22:14 | disposition home or self-care (01) ==
PROVIDERS: Emergency Provider Emergency Medicine; PCP Family Medicine
DX: T23.231A Burn of second degree of multiple right fingers (nail), not including thumb, initial encounter (principal); Z23 Encounter for immunization; X15.8XXA Contact with other hot household appliances, initial encounter
CPT/HCPCS: 90471; 99283; 90715

== ENCOUNTER 2023-01-12 12:57 | Emergency (ER) | payer OTHER, MEDICAID, SELFPAY ==
[2023-01-12] VITALS (8 sets, daily range): BP systolic 98–122; BP diastolic 58–73; PULSE 60–77; RESP 16–20; TEMP 37.1; O2SAT 97–100; BMI 18.8
[2023-01-12 13:45] LABS: Strep Grp A by PCR Rapid Negative (Negative)
[2023-01-12 13:51] LABS: COVID19 -Nasal RAPID Negative (Negative)
--- NOTE | 2023-01-12 14:00 | ED.URI ---
HPI - URI/Sore Throat <Azar Smith PA-C - Last Filed: 01/12/23 17:39> General Chief Complaint: Upper Respiratory Symptoms Stated Complaint: shortness of breath, coughing Time Seen by Provider: 01/12/23 13:53 Source: patient Mode of arrival: Ambulatory History of Present Illness HPI Narrative: This is a 37-year-old female presents to the emergency department complaining of worsening dry cough and shortness of breath the last 5 days. States she has a history of allergies. States that the cough is primarily dry and has a ?burning in her chest?. States that it is worse when she is talking. States she is her [id number] child still. History of chronic allergies seeing an child development consultant. States she has some nausea but denies any vomiting. Denies any fevers, chest pain, abdominal pain, or any other concerning signs or symptoms. Related Data Previous Rx's Medication Instructions Recorded norethindrone (contraceptive) 0.35 0.35 mg PO DAILY #84 tabs 12/16/21 mg tablet azelastine 205.5 mcg (0.15 %) 1 spray intranasal BID #30 mL 01/07/23 nasal spray montelukast 5 mg chewable tablet See Rx Instructions PO DAILY #60 01/07/23 tabs albuterol sulfate 90 mcg/actuation 1 inh inhalation QID PRN shortness 01/12/23 aerosol inhaler of breath or wheezing #6.7 grams prednisone 20 mg tablet 20 mg PO BID #10 tabs 01/12/23 Allergies Allergy/AdvReac Type Severity Reaction Status Date / Time No Known Drug Allergies Allergy Verified 01/12/23 12:31 Review of Systems <Azar Smith PA-C - Last Filed: 01/12/23 17:39> Review of Systems Narrative: GENERAL: Denies chills, fatigue, malaise, fever, sweats. HEENT: Denies sinus pain, ear pain, sore throat, difficulty swallowing, dizziness. RESPIRATORY: Reports cough and shortness of breath CARDIOVASCULAR: Denies chest pain, palpitations, orthopnea, edema, GASTROINTESTINAL: Denies nausea, vomiting, abdominal pain, diarrhea, constipation, melena. : Denies dysuria, frequency, incontinence, hematuria, urinary retention. MUSCULOSKELETAL: denies weakness, joint pain, or bony pain SKIN: Denies rash, skin lesions, or other NEUROLOGIC: Denies weakness, headache, numbness, change in speech, confusion, seizures, incoordination. PSYCHIATRIC: No concerning psychosocial issues. 12 point review of systems is negative except for those stated above Patient History <Azar Smith PA-C - Last Filed: 01/12/23 17:39> Medical History Allergic rhinitis Hives Pityriasis rosea (spontaneous vaginal delivery) (~10/2017) Surgical History [place] teeth extracted Family History Father Healthy adult male Family estrangement Mother Healthy female adult Family estrangement Grandfather No problems noted. Grandmother No problems noted. Grandfather No problems noted. Grandmother No problems noted. Social History marital status: number of children: 1 household members: significant other and children lives independently: Yes (In a Hotel ) caregiver/support person: No pets and animals: No occupational status: unemployed current occupational exposures/hazards: No special pipo needs: No Smoking Status: Never smoker Tobacco: How many years used: 13 quit status: quit date established (04/13/2017) second hand exposure: No ( smokes : but outside) alcohol intake: former substance use type: does not use Smoking Status: Never smoker alcohol intake frequency: holidays/special occasions only Substance Use Type: does not use Exam <Azar Smith PA-C - Last Filed: 01/12/23 17:39> Narrative Exam Narrative: GENERAL: Well-developed patient, in mild distress. HEAD: Atraumatic. Normocephalic. EYES: Pupils equal round and reactive. Extraocular motions intact. No scleral icterus. No injection or drainage. ENT: Nose without bleeding, purulent drainage. Bilateral tonsillar edema. No unilateral swelling NECK: Trachea midline. Non tender CARDIOVASCULAR: Regular rate and rhythm without murmurs, gallops, or rubs. RESPIRATORY: Clear to auscultation. Breath sounds equal bilaterally. No wheezes, rales, or rhonchi. GASTROINTESTINAL: Abdomen soft, non-tender, nondistended. EXTREMITIES: No edema or joint tenderness. BACK: Nontender without deformity or crepitance. No flank tenderness. NEURO: AOx3. SKIN: No rash or erythema of visible areas Initial Vital Signs Initial Vital Signs: Vital Signs Temperature 98.8 F 01/12/23 12:58 Pulse Rate 70 01/12/23 12:58 Respiratory Rate 16 01/12/23 12:58 Blood Pressure 113/73 01/12/23 12:58 Pulse Oximetry 100 01/12/23 12:58 Oxygen Delivery Method Room Air 01/12/23 12:58 <Katia Harris DO - Last Filed: 01/13/23 10:25> Initial Vital Signs Initial Vital Signs: Vital Signs Temperature 98.8 F 01/12/23 12:58 Pulse Rate 70 01/12/23 12:58 Respiratory Rate 16 01/12/23 12:58 Blood Pressure 113/73 01/12/23 12:58 Pulse Oximetry 100 01/12/23 12:58 Oxygen Delivery Method Room Air 01/12/23 12:58 Course <Azar Smith PA-C - Last Filed: 01/12/23 17:39> Orders Ordered: Discontinued Medications Albuterol/Ipratropium (Albuterol/Ipratropium 3 Ml Ampul) 3 ml INH NOW ONE Stop: 01/12/23 14:29 Last Admin: 01/12/23 14:50 Dose: 3 ml Documented By: DAVID Dexamethasone (Dexamethasone 10 Mg/Ml Vial) 10 mg IV NOW ONE Stop: 01/12/23 14:29 Last Admin: 01/12/23 15:08 Dose: 10 mg Documented By: AT Vital Signs Vital signs: Vital Signs - 8 hr 01/12/23 12:58 01/12/23 14:50 01/12/23 14:03 Temperature 98.8 F Pulse Rate 70 62 68 Respiratory Rate 16 20 Blood Pressure 113/73 Pulse Oximetry 100 99 98 Oxygen Delivery Method Room Air Room Air Oxygen Flow Rate 0 Fraction of Inspired Oxygen 21 01/12/23 14:30 01/12/23 15:00 01/12/23 15:11 Temperature Pulse Rate 60 70 72 Respiratory Rate Blood Pressure Pulse Oximetry 97 98 98 Oxygen Delivery Method Oxygen Flow Rate Fraction of Inspired Oxygen 01/12/23 15:11 01/12/23 15:30 01/12/23 15:52 Temperature Pulse Rate 76 Respiratory Rate Blood Pressure 98/58 L 122/71 Pulse Oximetry 99 Oxygen Delivery Method Oxygen Flow Rate Fraction of Inspired Oxygen 01/12/23 15:52 Temperature Pulse Rate 77 Respiratory Rate 16 Blood Pressure Pulse Oximetry 99 Oxygen Delivery Method Room Air Oxygen Flow Rate Fraction of Inspired Oxygen <Katia Harris DO - Last Filed: 01/13/23 10:25> Orders Ordered: Discontinued Medications Albuterol/Ipratropium (Albuterol/Ipratropium 3 Ml Ampul) 3 ml INH NOW ONE Stop: 01/12/23 14:29 Last Admin: 01/12/23 14:50 Dose: 3 ml Documented By: DAVID Dexamethasone (Dexamethasone 10 Mg/Ml Vial) 10 mg IV NOW ONE Stop: 01/12/23 14:29 Last Admin: 01/12/23 15:08 Dose: 10 mg Documented By: AT Vital Signs Vital signs: Vital Signs - 8 hr 01/12/23 12:58 01/12/23 14:50 01/12/23 14:03 Temperature 98.8 F Pulse Rate 70 62 68 Respiratory Rate 16 20 Blood Pressure 113/73 Pulse Oximetry 100 99 98 Oxygen Delivery Method Room Air Room Air Oxygen Flow Rate 0 Fraction of Inspired Oxygen 01/12/23 14:30 01/12/23 15:00 01/12/23 15:11 Temperature Pulse Rate 60 70 72 Respiratory Rate Blood Pressure Pulse Oximetry 97 98 98 Oxygen Delivery Method Oxygen Flow Rate Fraction of Inspired Oxygen 01/12/23 15:11 01/12/23 15:30 01/12/23 15:52 Temperature Pulse Rate 76 Respiratory Rate Blood Pressure 98/58 L 122/71 Pulse Oximetry 99 Oxygen Delivery Method Oxygen Flow Rate Fraction of Inspired Oxygen 01/12/23 15:52 Temperature Pulse Rate 77 Respiratory Rate 16 Blood Pressure Pulse Oximetry 99 Oxygen Delivery Method Room Air Oxygen Flow Rate Fraction of Inspired Oxygen MDM - URI/Sore Throat <Azar Smith PA-C - Last Filed: 01/12/23 17:39> Lab Data Labs: Lab Results 01/12/23 01/12/23 01/12/23 Range/Units 13:25 13:25 15:55 Chlamy pneumoniae PCR Not detected (Not Detect) Adenovirus (PCR) Not detected (Not Detect) B. pertussis DNA (PCR) Not detected (Not Detecte) B.parapertussis DNA PCR Not detected (Not Detecte) Coronavirus OC43 (PCR) Not detected (Not Detect) Coronavirus HKU1 (PCR) Not detected (Not Detect) Coronavirus 229E (PCR) Not detected (Not Detect) SARS-CoV-2 (PCR) Negative Not detected (Negative) Coronavirus NL63 (PCR) Not detected (Not Detect) Human Metapneumovir PCR Not detected (Not Detect) Influenza Type A (PCR) Not detected (Not Detect) Influenza Type B (PCR) Not detected (Not Detect) M. pneumoniae (PCR) Not detected (Not Detect) Parainfluenza 1 (PCR) Not detected (Not Detect) Parainfluenza 2 (PCR) Not detected (Not Detect) Parainfluenza 3 (PCR) Not detected (Not Detect) Parainfluenza 4 (PCR) Not detected (Not Detect) RSV (PCR) Not detected (Not Detect) Entero/Rhino (PCR) Not detected (Not Detect) Group A Strep (PCR) Negative (Negative) MDM Narrative Medical decision making narrative: MDM * differential diagnosis includes but not limited to pneumonia, bacterial pharyngitis, viral pharyngitis, allergic reaction * Prior records reviewed: Patient was seen in the walk-in clinic just prior to arrival due to a worsened cough. Currently 16th month old. States that she is been having some difficulty breathing. Sent to the emergency department for further evaluation * My lab interpretation: Rapid strep and COVID test negative. * My imgaing interpretation: Chest x-ray unremarkable * Clinical Decision Rules/Scores evaluated: None * Independent discussions with: None ED Course: This is a 37-year-old female presents to the emergency department due to increased dry cough, difficulty breathing as well as voice hoarseness of the last 5 days. Patient was given a breathing treatment which significantly helped with her symptoms as well as IV Decadron and states she feels much better. Patient's chest x-ray was unremarkable. Rapid strep negative, COVID test negative. Patient respiratory panel swab and will called inform her of results. Will discharge with oral prednisone and instructions to take Benadryl as well in case this is more of an allergic reaction. Patient was seen by attending physician, Dr. Mank as well, Shared Decision Making: Discussed plan with patient who is comfortable with the plan. UPDATE [id number] -respiratory panel came back negative and called and left voicemail for patient to inform her of the results. Social Considerations: None Disposition: Discharged home <Katia Harris, - Last Filed: 01/13/23 10:25> Lab Data Labs: Lab Results 01/12/23 01/12/23 01/12/23 Range/Units 13:25 13:25 15:55 Chlamy pneumoniae PCR Not detected (Not Detect) Adenovirus (PCR) Not detected (Not Detect) B. pertussis DNA (PCR) Not detected (Not Detecte) B.parapertussis DNA PCR Not detected (Not Detecte) Coronavirus OC43 (PCR) Not detected (Not Detect) Coronavirus HKU1 (PCR) Not detected (Not Detect) Coronavirus 229E (PCR) Not detected (Not Detect) SARS-CoV-2 (PCR) Negative Not detected (Negative) Coronavirus NL63 (PCR) Not detected (Not Detect) Human Metapneumovir PCR Not detected (Not Detect) Influenza Type A (PCR) Not detected (Not Detect) Influenza Type B (PCR) Not detected (Not Detect) M. pneumoniae (PCR) Not detected (Not Detect) Parainfluenza 1 (PCR) Not detected (Not Detect) Parainfluenza 2 (PCR) Not detected (Not Detect) Parainfluenza 3 (PCR) Not detected (Not Detect) Parainfluenza 4 (PCR) Not detected (Not Detect) RSV (PCR) Not detected (Not Detect) Entero/Rhino (PCR) Not detected (Not Detect) Group A Strep (PCR) Negative (Negative) Discharge Plan Departure Patient Disposition: Home Clinical Impression: Upper respiratory infection Activity Restrictions/Additional Instructions: Thank you for coming to the [facility] Emergency Department today. I am glad that the treatments we gave you today help to make it feel better. Please continue taking Benadryl if this is helping. Please also take the prednisone as prescribed. You may also try uses albuterol inhaler prescribed. I will call you with the viral panel results when they are available in a couple of hours. Your chest x-ray shows no evidence of pneumonia or other lung abnormality. I recommend you stop as Benadryl may not be good for the baby. I hope you feel better soon. Prescriptions: New albuterol sulfate 90 mcg/actuation HFA aerosol inhaler 1 inh inhalation QID PRN (Reason: shortness of breath or wheezing) Qty: 6.7 0RF prednisone 20 mg tablet 20 mg PO BID Qty: 10 0RF No Action norethindrone (contraceptive) 0.35 mg tablet 0.35 mg PO DAILY Qty: 84 3RF azelastine 205.5 mcg (0.15 %) spray,non-aerosol 1 spray intranasal BID Qty: 30 3RF Rx Instructions: administer into each nostril montelukast 5 mg tablet,chewable See Rx Instructions PO DAILY Qty: 60 1RF Rx Instructions: Take one tablet once or twice daily as needed for allergies Referrals: Mikaela Beltran DO [Primary Care Provider] - Stand Alone Forms: Patient Portal/API <Katia Harris DO - Last Filed: 01/13/23 10:25> Cosign ED Attending Carolinaature Attestation: I was immediately available in the department for consultation. Patient was also seen and evaluated by myself patient's exam shows some mild tonsillar erythema mild enlargement, no exudate. No changes such as mucositis or thrush appreciated. Patient has a little bit of a dry cough she is not wheezy on exam but was given albuterol treatment and this did make patient feel much better, fluids as well as a dose of IV steroid. Patient does not appear to be having a allergic type reaction, upper respiratory viral pharyngitis versus bronchitis is my suspicion. Respiratory panel negative chest x-ray was clear. Patient is not particularly wheezy but did respond in terms of cough to the albuterol. Plan for short course of steroid and albuterol. Patient was feeling improved.
--- NOTE | 2023-01-12 14:28 | DI.RAD.S_ITS ---
PROCEDURE: XR CHEST 2V INDICATIONS: SOB TECHNIQUE: 2 views of the chest were acquired. COMPARISON: None. FINDINGS: Surgical changes and devices: None. Lungs and pleura: Lungs are clear. No pleural effusions or pneumothorax. Mediastinum: Mediastinal contours are normal. Heart size is normal. Bones and chest wall: No suspicious bony abnormalities. Soft tissues appear unremarkable. IMPRESSION: No acute cardiopulmonary disease process. Dictated by: Violetta Parsons MD, PhD on 01/12/2023 at 14:51 Approved by: Violetta Parsons MD, PhD on 01/12/2023 at 14:52
[2023-01-12] MEDS: ALBUTEROL/IPRATROPIUM 3 ML AMPUL INH (14:50)
[2023-01-12] MEDS: DEXAMETHASONE 10 MG/ML VIAL IV (15:08)
--- NOTE | 2023-01-12 15:20 | PC.NURSE ---
Pharmacy and Comr[facility]se were consulted, patient is safe to continue after a single dose of dexamethasone. Patient given print out of incuBET containing this information. Patient is aware and agreeable.
[2023-01-12 17:04] LABS: Adenovirus Not Detected (Not Detect); B. parapertussis Not Detected (Not Detecte); Bordetella pertussis Not Detected (Not Detecte); Chlamydophila pneumoniae Not Detected (Not Detect); Coronavirus 229E Not Detected (Not Detect); Coronavirus HKU1 Not Detected (Not Detect); Coronavirus NL 63 Not Detected (Not Detect); Coronavirus OC43 Not Detected (Not Detect); Human Metapneumovirus Not Detected (Not Detect); Human Rhinovirus/Enterovirus Not Detected (Not Detect); Influenza A Not Detected (Not Detect); Influenza B Not Detected (Not Detect); Mycoplasma pneumoniae Not Detected (Not Detect); Parainfluenza Virus 1 Not Detected (Not Detect); Parainfluenza Virus 2 Not Detected (Not Detect); Parainfluenza Virus 3 Not Detected (Not Detect); Parainfluenza Virus 4 Not Detected (Not Detect); Respiratory Syncytial Virus Not Detected (Not Detect); SARS- CoV-2 Not Detected (Not Detecte)
== END 2023-01-12 16:23 | disposition home or self-care (01) ==
PROVIDERS: Emergency Medicine; Emergency Provider Physician Assistant Medical; PCP Family Medicine
DX: J06.9 Acute upper respiratory infection, unspecified (principal); R07.9 Chest pain, unspecified; Z20.822 Contact with and (suspected) exposure to COVID-19
CPT/HCPCS: 71046; 87633; 87635; 87651; 94640; 96374; 99284; C9803; J1100

== ENCOUNTER → 2023-05-13 06:48 | Outpatient (CLI) | payer OTHER, MEDICAID, SELFPAY ==
--- NOTE | 2023-05-13 06:49 | DI.US.S_ITS ---
PROCEDURE: US OB <= 14 WEEKS FETUS INDICATIONS: DATING AND VIABILITY OUTSIDE/PRIOR DATING DATA: Last menstrual period (LMP): 02/17/2023. LMP-based estimated date of delivery (WILLY): 11/24/2023. First dating scan (date and location): Today's exam. Estimated date of delivery (WILLY) from first dating scan: 11/26/2023. TECHNIQUE: Real-time scanning was performed of the fetus and maternal pelvic organs, with image documentation. COMPARISON: None. FINDINGS: Embryo: Present. [place]-rump length measures 5.3 cm, 11 weeks 6 days. Heart rate: 150 beats per minute. Maternal organs: Ovaries are not visualized due to overlying bowel gas. IMPRESSION: Single living intrauterine at 11 weeks 6 days, WILLY of 09/25/2024. We strive to produce accurate, complete, and clear reports of imaging services. To assist us in improving patient care, this report was composed using standard report templates and voice recognition software. Therefore, it may contain abnormal punctuation, insertions and/or omissions. Occasional wrong-word or sound-alike substitutions may occur. Though we review the report and make efforts to correct it, we do recommend that the report be read carefully in proper context to recognize any text inaccuracies. Dictated by: Markel Tariq M.D. on 05/13/2023 at 8:49 Approved by: Markel Tariq M.D. on 05/13/2023 at 8:51
== END ==
PROVIDERS: PCP Family Medicine; Referring Provider Family Medicine; Visit Provider Family Medicine
DX: Z36.87 Encounter for antenatal screening for uncertain dates (principal); Z3A.11 11 weeks gestation of pregnancy
CPT/HCPCS: 76801

== ENCOUNTER → 2023-06-03 11:20 | Outpatient (CLI) | payer OTHER, MEDICAID, SELFPAY ==
[2023-06-03 12:07] LABS: Specimen Label NATERA
[2023-06-03 12:35] LABS: Add Manual Diff / Slide Review NO; Basophils Absolute Auto 0 /uL (0-100); Basophils Percent Auto 0.4 % (0-2); Eosinophils Absolute Auto 200 /uL (0-450); Eosinophils Percent Auto 2.6 % (2-4); Hematocrit 33.2 % (36-46); Hemoglobin 11.4 g/dL (12.0-16.0); Lymphocytes Absolute Auto 1300 /uL (1100-4500); Lymphocytes Percent Auto 17.5 % (25-40); Mean Corpuscular HGB Conc 34.5 % (30-36); Mean Corpuscular Hemoglobin 32.5 PG (26-34); Mean Corpuscular Volume 94.3 fL (80-100); Monocytes Absolute Auto 300 /uL (0-900); Monocytes Percent Auto 3.5 % (3-14); Neutrophils Absolute Auto 5500 /uL (1500-7000); Platelet Count 228 X10^3/uL (150-400); Red Blood Cell Count 3.52 X10^6/uL (4.0-5.2); White Blood Cell Count 7.2 X10^3/uL (4.5-11.0)
[2023-06-03 16:34] LABS: Hepatitis B Surface Antigen NEGATIVE s/c (NEGATIVE); Rubella Antibody IgG 98.7 IU/mL (>15)
[2023-06-03 16:47] LABS: HIV 1 & 2 Ab/Ag 4th Gen Combo NEGATIVE (NEGATIVE); Hep C Virus Ab w/Reflex Quant NEGATIVE s/c (NEGATIVE)
[2023-06-04 09:09] LABS: Varicella IgG Antibody 1532 index (Immune >165)
[2023-06-05 00:38] LABS: RPR Screen Non Reactive (Non Reactive)
== END ==
PROVIDERS: PCP Family Medicine; Referring Provider Family Medicine; Visit Provider Family Medicine
DX: O09.521 Supervision of elderly multigravida, first trimester (principal); Z34.80 Encounter for supervision of other normal pregnancy, unspecified trimester
CPT/HCPCS: 36415; 80055; 86787; 86803; 86850; 86900; 86901; 87086; 87389

== ENCOUNTER → 2023-08-09 16:08 | Outpatient (CLI) | payer OTHER, MEDICAID, SELFPAY ==
--- NOTE | 2023-08-09 16:09 | DI.US.S_ITS ---
PROCEDURE: OB >= 14 WEEKS FETUS INDICATIONS: anatomy screening OUTSIDE/PRIOR DATING DATA: Last menstrual period (LMP): 02/17/2023. LMP-based estimated date of delivery (WILLY): 11/24/2026. First dating scan (date and location): 05/13/2023. Estimated date of delivery (WILLY) from first dating scan: 11/26/2023. The calculations are made using the LMP WILLY of 11/24/2023. TECHNIQUE: Real-time scanning was performed of the fetus, with image documentation and biometric measurements. COMPARISON: [facility], OB >= 14 WEEKS FETUS, 07/04/2021, 13:06. FINDINGS: General: A single living intrauterine gestation is present. Presentation: Vertex. Placenta: Placental position is posterior , without previa. The placenta is low-lying measuring 2.8 cm from the cervix. Amniotic fluid index: 16.0 cm, normal range is 5-24 cm. Single deepest vertical pocket is 4.9 cm. heart rate: 135 beats per minute. Maternal cervical canal: 4.6 cm long. Normal lower limit is 2.5 cm. biometrics: Biparietal diameter: 5.9 cm. 24 weeks 0 days Head circumference: 21.6 cm. 23 weeks 4 days Abdominal circumference: 19.8 cm. 24 weeks 3 days Femur length: 4.4 cm. 24 weeks 4 days Clinically estimated gestational age: 24 weeks 5 days Composite gestational age from present scan: 24 weeks 1 day Estimated weight and percentile: 690 g, 26th percentile. Anatomic survey: Neuro: Ventricles are non-dilated at less than 10 mm. Cisterna magna is normal at 3-11 mm. Cerebellum is normal in size and morphology. Nuchal skin fold: Normal at less than 6 mm between 14-21 weeks gestational age. Face: Nose and lips, facial profile are normal. Spine: No evidence for spina bifida. Heart: 4-chambered heart is present, with normal ventricular outflow tracts. Diaphragm: Diaphragm is intact. Stomach: Left-sided stomach is present. Kidneys: No hydronephrosis. Normal is less than 5 mm in 2nd trimester, less than 7 mm in 3rd trimester. Cord: 3-vessel cord has orthotopic insertion. Bladder: Normal in size. Extremities: All 4 extremities identified. IMPRESSION: 1. Single living intrauterine with a composite gestational age from today's ultrasound of 24 weeks 1 day. 2. Visualized anatomy is normal. 3. The placenta appears low lying measuring 2.8 cm from the cervix. We strive to produce accurate, complete, and clear reports of imaging services. To assist us in improving patient care, this report was composed using standard report templates and voice recognition software. Therefore, it may contain abnormal punctuation, insertions and/or omissions. Occasional wrong-word or sound-alike substitutions may occur. Though we review the report and make efforts to correct it, we do recommend that the report be read carefully in proper context to recognize any text inaccuracies. Dictated by: Brett Wilcox M.D. on 08/10/2023 at 12:39 Approved by: Brett Wilcox M.D. on 08/10/2023 at 12:42
== END ==
PROVIDERS: PCP Family Medicine; Referring Provider Student in an Organized Health Care Education/Training Program; Visit Provider Student in an Organized Health Care Education/Training Program
DX: Z34.92 Encounter for supervision of normal pregnancy, unspecified, second trimester (principal); Z3A.24 24 weeks gestation of pregnancy
CPT/HCPCS: 76811

== ENCOUNTER → 2023-08-30 09:45 | Outpatient (CLI) | payer OTHER, MEDICAID, SELFPAY ==
[2023-08-30 12:11] LABS: Hematocrit 31.3 % (36-46); Hemoglobin 10.9 g/dL (12.0-16.0)
[2023-08-30 12:38] LABS: GTT (PREG) 1 Hour PP 50gm Dose 201 mg/dL (76-139)
== END ==
PROVIDERS: PCP Student in an Organized Health Care Education/Training Program; Referring Provider Student in an Organized Health Care Education/Training Program; Visit Provider Student in an Organized Health Care Education/Training Program
DX: Z34.92 Encounter for supervision of normal pregnancy, unspecified, second trimester (principal); Z3A.23 23 weeks gestation of pregnancy
CPT/HCPCS: 36415; 82950; 85014; 85018

== ENCOUNTER → 2023-09-06 09:55 | Outpatient (CLI) | payer OTHER, MEDICAID, SELFPAY ==
[2023-09-06 11:22] LABS: Glucose Fasting Gestational 97 mg/dL (76-95)
[2023-09-06 12:43] LABS: Glucose 1 Hour Gest 175 mg/dL (76-180)
[2023-09-06 13:16] LABS: Glucose Tol Interp,Gestational INTERPRETATION
[2023-09-06 13:28] LABS: Glucose 2 Hour Gest 180 mg/dL (76-155)
[2023-09-06 14:46] LABS: Glucose 3 Hour Gest 114 mg/dL (76-140)
== END ==
PROVIDERS: PCP Student in an Organized Health Care Education/Training Program; Referring Provider Student in an Organized Health Care Education/Training Program; Visit Provider Student in an Organized Health Care Education/Training Program
DX: R73.09 Other abnormal glucose (principal)
CPT/HCPCS: 82951; 82952

== ENCOUNTER → 2023-10-26 09:22 | Outpatient (CLI) | payer OTHER, MEDICAID, SELFPAY ==
[2023-10-27 12:22] LABS: Strep Grp B PCR NEG for Grp B Strep
== END ==
PROVIDERS: PCP Student in an Organized Health Care Education/Training Program; Visit Provider Student in an Organized Health Care Education/Training Program
DX: Z34.93 Encounter for supervision of normal pregnancy, unspecified, third trimester (principal); Z3A.37 37 weeks gestation of pregnancy
CPT/HCPCS: 87653

== ENCOUNTER → 2023-10-26 10:27 | Outpatient (CLI) | payer OTHER, MEDICAID, SELFPAY ==
[2023-10-26 11:14] LABS: Add Manual Diff / Slide Review NO; Basophils Absolute Auto 0 /uL (0-100); Basophils Percent Auto 0.3 % (0-2); Eosinophils Absolute Auto 200 /uL (0-450); Eosinophils Percent Auto 1.8 % (2-4); Hematocrit 32.9 % (36-46); Hemoglobin 11.4 g/dL (12.0-16.0); Lymphocytes Absolute Auto 1500 /uL (1100-4500); Lymphocytes Percent Auto 14.5 % (25-40); Mean Corpuscular HGB Conc 34.6 % (30-36); Mean Corpuscular Hemoglobin 33.9 PG (26-34); Monocytes Absolute Auto 500 /uL (0-900); Monocytes Percent Auto 5.1 % (3-14); Neutrophils Absolute Auto 8100 /uL (1500-7000); Neutrophils Percent Auto 78.3 % (50-75); Platelet Count 189 X10^3/uL (150-400); Red Blood Cell Count 3.35 X10^6/uL (4.0-5.2); Red Cell Distribution Width 13.1 % (11.6-14.8); White Blood Cell Count 10.3 X10^3/uL (4.5-11.0)
[2023-10-26 11:27] LABS: Alanine Aminotransferase 11 IU/L (<35); Albumin 3.7 g/dL (3.5-5.0); Albumin Globulin Ratio 1.1 (1.0-2.8); Alkaline Phosphatase 94 U/L (38-126); Aspartate Aminotransferase 21 IU/L (14-36); BUN Creatinine Ratio 34.2 (6-22); Bilirubin Total 0.5 mg/dL (0.2-1.3); Blood Urea Nitrogen 13 mg/dL (7-17); Calcium 9.6 mg/dL (8.4-10.2); Carbon Dioxide 24 mmol/L (22-32); Chloride 104 mmol/L (98-107); Estimated Glomerular Filt Rate > 60 mL/min (>60); Globulin 3.4 g/dL (1.7-4.1); Glucose 99 mg/dL (70-100); HEMOLYSIS < 15 (0-50); Potassium 3.8 mmol/L (3.4-5.1); Sodium 135 mmol/L (137-145); Total Protein 7.1 g/dL (6.3-8.2)
[2023-10-28 14:24] LABS: Bile Acids 1.9 umol/L (0.0-10.0)
== END ==
LOC: LAB 10:28
PROVIDERS: PCP Student in an Organized Health Care Education/Training Program; Referring Provider Student in an Organized Health Care Education/Training Program; Visit Provider Student in an Organized Health Care Education/Training Program
DX: O99.713 Diseases of the skin and subcutaneous tissue complicating pregnancy, third trimester (principal); L29.9 Pruritus, unspecified; Z3A.37 37 weeks gestation of pregnancy
CPT/HCPCS: 36415; 80053; 82239; 85025; 87653

== ENCOUNTER 2023-11-15 10:42 | Observation (INO) | payer OTHER, MEDICAID, SELFPAY | END 2023-11-15 12:58 | disposition home or self-care (01) | PROVIDERS: Admitting Provider Student in an Organized Health Care Education/Training Program; PCP Student in an Organized Health Care Education/Training Program; Referring Provider Student in an Organized Health Care Education/Training Program; Visit Provider Student in an Organized Health Care Education/Training Program | DX: O47.1 False labor at or after 37 completed weeks of gestation (principal); Z3A.38 38 weeks gestation of pregnancy | CPT/HCPCS: 59025; G0378; G0379 ==

== ENCOUNTER 2023-11-15 19:43 | Inpatient (IN) | payer OTHER, MEDICAID, SELFPAY ==
[2023-11-15] MEDS: fentaNYL 100 MCG/2 ML INJ 50 MCG IV ×2 (19:53→20:09)
[2023-11-15] MEDS: KETOROLAC 30 MG/ML VIAL IV (20:05)
[2023-11-15] MEDS: miSOPROStoL 200 MCG TABLET 800 MCG PR (20:06)
[2023-11-15] MEDS: LIDOCAINE 1% 20 ML INJ (20:09)
[2023-11-15 20:29] VITALS: BP 112/59
--- NOTE | 2023-11-15 20:31 | P.HPOB_ITS ---
OB HPI Date/Time Date of admission: 11/15/23 Date Patient Seen: 11/15/23 Time Patient Seen: 20:30 History of Present Condition Chief complaint: WILLY Calculator Estimated Delivery Date Method Current WG Current Estimate 11/24/23 Manual 38w 5d Final WILLY - ASHLEY Other Estimates 11/24/23 LMP (Certain) 38w 5d 11/26/23 Ultrasound #1 38w 3d : 3 Para: 2 Narrative: Patient was seen earlier today in the AM for labor rule out. At that time she was 2/50/high and demetria every 10 minutes, pain was 3/10. Contractions increased in intensity this evening around 6pm and she called who was out of the house. She was unable to speak through contractions. He came home and started driving to the hospital. She felt intense pressure and they pulled to the side of the road. Her was speeding and was being followed by multiple police officers. They pulled over and patient pulled down her pants as the baby delivered. Police were able to call agency service coordinator who brought patient to the hospital. She is in pain on arrival and placenta has not yet delivered. care: good care Preadmission Labs Last OB Lab Results: Blood Type O Positive 06/03/23 11:31 Antibody Screen Negative 06/03/23 11:31 Hematocrit 32.9 % (36-46) L 10/26/23 10:33 Hemoglobin 11.4 g/dL (12.0-16.0) L 10/26/23 10:33 Hepatitis B Surface Antigen Negative s/c (NEGATIVE) 06/03/23 11 :31 Hepatitis C Antibody Negative s/c (NEGATIVE) 06/03/23 11:31 Rubella Antibody 98.7 IU/mL (>15) 06/03/23 11:31 Varicella-Zoster IgG Antibody 1532 index (Immune >165) 06/03/23 11:31 Glucose 1 Hour 201 mg/dL (76-139) H 08/30/23 10:16 Group B Streptococcus (PCR) Neg for grp b strep 10/26/23 09:22 Prior (ies) Past Pregnancies Del. Date GA/Weeks Labor Lgth Wt Sex Route Outcome Anesthesia Place Delv Breastfeed Preg Comp Name 10/25/17 39.4 3 7 lb Female vaginal live - full term epidural [place] 3 years old none Susana [place] 09/05/21 37.4 1 6 lb 8.623 oz Female vaginal live - [facility] Still going as of 05/11/23 oligohydramnios [place] Delivery Date: 10/25/17 Last Updated by: Simi Quinteros R.N. *No issues PP Delivery Date: 09/05/21 Last Updated by: Mikaela Beltran D.O. Induction for oligohydramnios PFSH Medical History Allergic rhinitis Hives Pityriasis rosea (spontaneous vaginal delivery) (~10/2017) Surgical History [place] teeth extracted Family History Father Healthy adult male Family estrangement Mother Healthy female adult Family estrangement Grandfather No problems noted. Grandmother No problems noted. Grandfather No problems noted. Grandmother No problems noted. 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[facility]) current occupational exposures/hazards: No special pipo needs: No travel history: recent (will be visiting [place] during ) seatbelt use: always water heater temp set < 120 deg: Yes working smoke detector in home: Yes fire extinguisher in home: Yes firearms in home: No do you feel safe at home: Yes Smoking Status: Former smoker (quit 2016) Tobacco: How many years used: 13 quit status: quit date established (04/13/2017) second hand exposure: Yes ( smokes : but outside) alcohol intake: former substance use type: does not use during the past year weight has: remained stable well-balanced diet: daily or most days daily servings fruits/ve-4 caffeine: Yes (occasional espresso drink) Type(s) of exercise: other (active with children) Meds Home Medications and Allergies Home Medications Medication Instructions Recorded Confirmed Type montelukast 5 mg chewable tablet See Rx Instructions PO DAILY #60 03/08/23 11/09/23 Rx tabs vitamin-ferrous sulfate tab PO 05/11/23 11/09/23 History 27 mg iron-folic acid 0.8 mg tablet Glucose meter, test strips,lancets #1 ea 09/29/23 11/09/23 Rx lancets #100 ea 09/30/23 11/09/23 Rx test strips #100 ea 11/11/23 Rx Allergies Allergy/AdvReac Type Severity Reaction Status Date / Time No Known Drug Allergies Allergy Verified 11/09/23 10:27 Assessment and Plan Assessment and Plan Assessment and Plan narrative: Admit for in the field. Placenta delivered without complication in hospital. Patient given fentanyl IV equaling 100 mcg over 20 minutes. Toradol IV given. Pitocin started. Second degree laceration repaired. Misoprostol 800 mcg given for vaginal bleeding. See delivery note. -routine care -anticipate discharge tomorrow
--- NOTE | 2023-11-15 20:43 | PM.OBPRVD ---
Events: Gestational Diabetes Labor & Delivery Delivery date: 11/15/23 Intrapartal Events: Precipitous Labor < 3 hours and Born Out of Hospital Route of delivery: L&D Laceration Description: Perineal - 2nd Degree Delivery repair: vicryl Estimated blood loss (mL): 200 Anesthesia Type: Local Narrative: Patient delivered in the field. Presented to hospital with cord cut in field by EMT team. Baby . Placenta delivered in hospital with gentle traction. Bleeding minimal initially with boggy uterus intermittently. Cytotec 800 mcg given rectally. Second degree perineal repaired with local anesthetic and 3-0 vicryl. Pain not well controlled. Toradol IV given. Fentanyl 100 mcg given as well. [place] Baby 1: Infant gender: Female Presentation: vertex score (1 min): 8 score (5 min): 9 Plan for aftercare: Routine care
[2023-11-15] MEDS: OXYCODONE IR 5 MG TABLET PO (20:44)
[2023-11-15] MEDS: ACETAMINOPHEN 325 MG TABLET 650 MG PO (20:44)
[2023-11-15 20:57] LABS: Add Manual Diff / Slide Review NO; Basophils Absolute Auto 100 /uL (0-100); Basophils Percent Auto 0.5 % (0-2); Eosinophils Absolute Auto 0 /uL (0-450); Eosinophils Percent Auto 0.4 % (2-4); Lymphocytes Absolute Auto 1000 /uL (1100-4500); Lymphocytes Percent Auto 9.2 % (25-40); Mean Corpuscular HGB Conc 34.2 % (30-36); Mean Corpuscular Hemoglobin 32.9 PG (26-34); Mean Corpuscular Volume 96.2 fL (80-100); Monocytes Absolute Auto 500 /uL (0-900); Neutrophils Absolute Auto 9600 /uL (1500-7000); Neutrophils Percent Auto 85.9 % (50-75); Platelet Count 174 X10^3/uL (150-400); Red Blood Cell Count 3.64 X10^6/uL (4.0-5.2); Red Cell Distribution Width 12.7 % (11.6-14.8); White Blood Cell Count 11.2 X10^3/uL (4.5-11.0)
[2023-11-16] MEDS: OXYCODONE IR 5 MG TABLET PO ×4 (00:51→18:10)
[2023-11-16] MEDS: KETOROLAC 30 MG/ML VIAL IV ×3 (02:34→17:05)
[2023-11-16] MEDS: ACETAMINOPHEN 325 MG TABLET 650 MG PO ×3 (02:35→17:06)
--- NOTE | 2023-11-16 09:37 | PM.OBDS.1 ---
Discharge Providers Provider Date of admission: 11/15/23 19:43 Discharge Date: 11/16/23 Primary care physician: Tatum Logan MD Consults: 11/16/23 20:29 Consult to Customer Experience Associate Routine Comment: Discharge provider: Tatum Logan MD Summary Hospital Course Date Patient Seen: 11/16/23 Time Patient Seen: 07:45 Diagnoses: Hospital Course: Patient was seen in the AM 11/15 for labor rule out. At that time she was 2/50/high and demetria every 10 minutes, pain was 3/10. Contractions increased in intensity in the evening around 6pm and she called who was out of the house. She was unable to speak through contractions. He came home and they started driving to the hospital. She felt intense pressure and they pulled to the side of the road. Her was speeding and was being followed by multiple police officers. They pulled over and patient pulled down her pants as the baby delivered. Police were able to call breaker layer who brought patient to the hospital. Presented to hospital with cord cut in field by EMT team. Baby . Placenta delivered in hospital with gentle traction. Bleeding minimal initially with boggy uterus intermittently. Cytotec 800 mcg given rectally. Second degree perineal repaired with local anesthetic and 3-0 vicryl. Pain not well controlled. Toradol IV given. Fentanyl 100 mcg given as well. Recovered well following delivery. Taking oxycodone, tylenlol, ibuprofen PRN for pain. Peripartum Data Delivery Method: Natural Vaginal Laceration Description: Perineal - 2nd Degree complications: none Discharge Diagnosis (1) (spontaneous vaginal delivery): Status: Acute Time Spent with Patient Time attestation: Total time spent providing and/or coordinating discharge services: Time spent: Less than 30 minutes Objective Labs 11/15/23 20:48 Labs: Laboratory Results - last 24 hr 11/15/23 20:48 WBC 11.2 H RBC 3.64 L Hgb 12.0 Hct 35.0 L MCV 96.2 MCH 32.9 MCHC 34.2 RDW 12.7 Plt Count 174 Neut % (Auto) 85.9 H Lymph % (Auto) 9.2 L [place] % (Auto) 4.0 Eos % (Auto) 0.4 L Baso % (Auto) 0.5 Neut # (Auto) 9600 H Lymph # (Auto) 1000 L [place] # (Auto) 500 Eos # (Auto) 0 Baso # (Auto) 100 Blood Type O Positive Antibody Screen Negative Exam Narrative Exam Narrative: Fundus firm and below umbilicus. Breathing easily, NAD. Discharge Plan Discharge Plan Patient Disposition: Home Discharge orders & Medications Prescriptions: New acetaminophen 325 mg Tablet 650 mg PO Q6HR PRN (Reason: Pain, Mild (1-3)) Qty: 60 0RF oxycodone 5 mg Tablet 5 mg PO Q4HR PRN (Reason: Pain, Moderate (4-6)) Qty: 20 0RF Continued montelukast 5 mg tablet,chewable See Rx Instructions PO DAILY Qty: 60 6RF Rx Instructions: Take one tablet once or twice daily as needed for allergies vit-ferrous sulfat-FA 27 mg iron- 0.8 mg tablet PO Discontinued (DME) Glucose meter, test strips,lancets See Rx Instructions .Route .MEDSUPPLY Qty: 1 0RF Rx Instructions: As directed 4 times daily. Fasting, and 1 hour post-prandial (DME) lancets See Rx Instructions .Route .MEDSUPPLY Qty: 100 5RF Rx Instructions: As directed four times daily (DME) test strips See Rx Instructions .Route .MEDSUPPLY Qty: 100 5RF Rx Instructions: As directed four times daily Follow up/Referrals: Tatum Logan MD [Primary Care Provider] - ( Appt w/ Dr Banks: December 20 @ 11am) Visit Report/Discharge Packet Stand Alone Forms: Discharge: Care, Patient Portal/API, Stroke Signs & Symptoms Discharge Data Primary Care Provider: Tatum Logan
[2023-11-16] MEDS: OXYCODONE IR 10 MG TABLET PO ×2 (12:51→19:56)
== END 2023-11-16 20:15 | disposition home or self-care (01) | DRG 548 ==
PROVIDERS: Admitting Provider Student in an Organized Health Care Education/Training Program; PCP Student in an Organized Health Care Education/Training Program; Referring Provider Student in an Organized Health Care Education/Training Program; Visit Provider Student in an Organized Health Care Education/Training Program
DX: O70.1 Second degree perineal laceration during delivery (principal); O47.1 False labor at or after 37 completed weeks of gestation; Z3A.38 38 weeks gestation of pregnancy
CPT/HCPCS: 59025; 59409; 59414; 85025; 86850; 86900; 86901; G0378; G0379; J1885; J3010; S0191

== ENCOUNTER → 2024-01-08 18:34 | Outpatient (CLI) | payer OTHER, MEDICAID, SELFPAY ==
[2024-01-08 19:30] LABS: Influenza A - CEPHEID Flu A NEGATIVE (NEGATIVE); Influenza B - CEPHEID Flu B NEGATIVE (NEGATIVE); Respiratory Syncytial Virus Negative (Negative)
[2024-01-08 19:32] LABS: COVID-19 CEPHEID 4-PLEX PCR Negative (Negative)
== END ==
PROVIDERS: PCP Student in an Organized Health Care Education/Training Program; Visit Provider Physician Assistant Surgical
DX: J02.9 Acute pharyngitis, unspecified (principal); R50.9 Fever, unspecified
CPT/HCPCS: 87635; 87400 ×2; 87420; 0241U; 87070; 87880

== ENCOUNTER 2024-08-28 17:42 | Emergency (ER) | payer OTHER, MEDICAID, SELFPAY ==
[2024-08-28 17:50] VITALS: BP 113/68; PULSE 90; RESP 16; TEMP 37.1; O2SAT 96; BMI 19.8
[2024-08-28 18:14] LABS: Strep Grp A by PCR Rapid Positive (Negative)
[2024-08-28] MEDS: KETOROLAC 30 MG/ML VIAL 15 MG IV (18:29)
[2024-08-28] MEDS: DEXAMETHASONE 10 MG/ML VIAL IV (18:30)
[2024-08-28 18:48] LABS: Add Manual Diff / Slide Review NO; Basophils Absolute Auto 0 /uL (0-100); Basophils Percent Auto 0.3 % (0-2); Eosinophils Absolute Auto 0 /uL (0-450); Eosinophils Percent Auto 0.3 % (2-4); Hematocrit 38.1 % (36-46); Lymphocytes Absolute Auto 1200 /uL (1100-4500); Lymphocytes Percent Auto 14.3 % (25-40); Mean Corpuscular Volume 97.1 fL (80-100); Monocytes Absolute Auto 500 /uL (0-900); Monocytes Percent Auto 5.9 % (3-14); Neutrophils Absolute Auto 6500 /uL (1500-7000); Neutrophils Percent Auto 79.2 % (50-75); Platelet Count 287 X10^3/uL (150-400); Red Blood Cell Count 3.92 X10^6/uL (4.0-5.2); Red Cell Distribution Width 12.8 % (11.6-14.8); White Blood Cell Count 8.2 X10^3/uL (4.5-11.0)
[2024-08-28] MEDS: SODIUM CHLORIDE 0.9% 1,000 ML 1000 ML IV (18:48)
[2024-08-28 18:55] VITALS: PULSE 83; O2SAT 98
[2024-08-28 18:58] LABS: BUN Creatinine Ratio 22.2 (6-22); Blood Urea Nitrogen 10 mg/dL (7-17); Calcium 9.8 mg/dL (8.4-10.2); Carbon Dioxide 25 mmol/L (22-32); Chloride 105 mmol/L (98-107); Estimated Glomerular Filt Rate > 60 mL/min (>60); Glucose 101 mg/dL (70-100); HEMOLYSIS < 15 (0-50); Potassium 3.9 mmol/L (3.4-5.1); Sodium 138 mmol/L (137-145)
[2024-08-28 19:00] VITALS: PULSE 77; O2SAT 95
[2024-08-28 19:30] VITALS: PULSE 75; O2SAT 96
[2024-08-28] MEDS: AMOXICILLIN/CLAV 875/125 MG 1 TAB PO (19:48)
--- NOTE | 2024-08-28 19:56 | ED.GENADULT ---
HPI - General Adult General Chief complaint: Upper Respiratory Symptoms Stated complaint: tonsilitis, fever x2 days Time Seen by Provider: 08/28/24 18:10 History of Present Illness HPI narrative: patient is a 39-year-old female no significant past medical history presents for sore throat, she states that she has been having sore throat ongoing persistent for the past few days, states that she has a history of tonsillitis, states that she has had decreased p.o. intake secondary to the pain in her throat. Denies any headache visual disturbances is able to tolerate p.o. liquids and solids but has had decreased intake just secondary to pain. At time of evaluation patient is speaking full sentences protecting airway no voice changes no stridor no trismus. Related Data Home Medications Medication Instructions Recorded Confirmed vitamin-ferrous sulfate tab PO 05/11/23 04/27/24 27 mg iron-folic acid 0.8 mg tablet blood sugar diagnostic (True #10 ea 02/14/24 04/27/24 Metrix Glucose Test Strip) blood-glucose meter (True Metrix #1 ea 02/14/24 04/27/24 Glucose Meter) lancets 30 gauge (TRUEplus Lancets) #100 ea 02/14/24 04/27/24 bupropion HCl 150 mg 24 hr tablet, 150 mg PO DAILY 04/27/24 04/27/24 extended release Previous Rx's Medication Instructions Recorded acetaminophen 325 mg tablet 650 mg (2 x 325 mg) PO Q6HR PRN 11/16/23 Pain, Mild (1-3) #60 tabs oxycodone 5 mg tablet 5 mg PO Q4HR PRN Pain, Moderate 11/22/23 (4-6) #10 tabs norethindrone (contraceptive) 0.35 0.35 mg PO DAILY #84 tabs 12/03/23 mg tablet clobetasol 0.05 % topical cream 1 applic topical DAILY #30 grams 01/17/24 montelukast 10 mg tablet 10 mg PO DAILY #60 tabs 04/27/24 (Singulair) amoxicillin 875 mg-potassium 1 tab PO BID 10 days #20 tabs 08/28/24 clavulanate 125 mg tablet Allergies Allergy/AdvReac Type Severity Reaction Status Date / Time No Known Drug Allergies Allergy Verified 04/27/24 11:05 Review of Systems Review of Systems Narrative: General: Denies fever, chills, weight loss HEENT: Positive sore throat, Denies headache, eye drainage, eye irritation, head trauma, voice change Cardiovascular: Denies any chest pain, palpitations, shortness of breath, tachycardia Respiratory: Denies any shortness of breath, cough, wheeze, stridor GI/: Denies any abdominal pain, nausea, vomiting, diarrhea, bright red blood per rectum, melanotic stools, urinary frequency, urinary retention, dysuria, hematuria MSK: Denies any joint pain, muscle pains, swelling Skin: Denies any rashes, lesions, discoloration Neuro: Denies any headache, lightheadedness, dizziness, fainting, weakness Psych: Denies SI/HI Patient History Medical History (Updated 08/28/24 @ 19:59 by Ike Jarrett DO) (spontaneous vaginal delivery) (~10/2017) Pityriasis rosea Hives Allergic rhinitis Surgical History [place] teeth extracted Family History Father Healthy adult male Family estrangement Mother Healthy female adult Family estrangement Grandfather No problems noted. Grandmother No problems noted. Grandfather No problems noted. Grandmother No problems noted. 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[facility]) current occupational exposures/hazards: No special pipo needs: No travel history: recent (will be visiting [place] during ) seatbelt use: always water heater temp set < 120 deg: Yes working smoke detector in home: Yes fire extinguisher in home: Yes firearms in home: No do you feel safe at home: Yes Smoking Status: Unknown if ever smoked Tobacco: How many years used: 13 quit status: quit date established (04/13/2017) second hand exposure: Yes ( smokes : but outside) alcohol intake: former substance use type: does not use during the past year weight has: remained stable well-balanced diet: daily or most days daily servings fruits/ve-4 caffeine: Yes (occasional espresso drink) Type(s) of exercise: other (active with children) Smoking Status: Unknown if ever smoked alcohol intake frequency: holidays/special occasions only Substance Use Type: does not use Exam Narrative Exam Narrative: General: Cooperative, comfortable, well-developed, not in acute distress HEENT: patient with +2 tonsils with no significant amount of exudate noted uvula is midline she is speaking in full sentences protecting airway tolerating secretions no voice changes no stridor no trismus at time of evaluation patient is eating crackers and drinking water Normocephalic, atraumatic, PERRLA, normal sclera, eyelids normal, Neck: Active full range of motion, atraumatic Chest: Normal to inspection, negative crepitus, no overlying erythema ecchymosis Respiratory: Normal respiratory effort, not in acute respiratory distress, clear to auscultation bilaterally negative cough, wheeze, tachypnea, rhonchi, rales Cardiology: Regular rate rhythm negative gallop, murmur, rubs GI/: Normal to inspection, soft, nonrigid, no tenderness to palpation, exam deferred MSK: Full range of active range of motion of all 4 extremities, atraumatic Skin: No rashes lesions noted Neuro: Alert awake oriented x3, moves all 4 extremities spontaneously, cranial nerves intact, able to answer all questions appropriately follows commands appropriately Psych: Cooperative, negative suicidal or homicidal ideations Initial Vital Signs Initial Vital Signs: Vital Signs Temperature 98.8 F 08/28/24 17:50 Pulse Rate 90 08/28/24 17:50 Respiratory Rate 16 08/28/24 17:50 Blood Pressure 113/68 08/28/24 17:50 Pulse Oximetry 96 08/28/24 17:50 Oxygen Delivery Method Room Air 08/28/24 17:50 Course Orders Ordered: ED Orders 08/28/24 18:00 BMP [Basic Metabolic Panel] Stat CBC Auto Diff [Complete Blood Count AUTO DIFF] Stat Strep Grp A by PCR Rapid Stat Discontinued Medications Amoxicillin/Clavulanate Potassium (Amoxicillin/Clav 875/125 Mg) 1 tab PO NOW ONE Stop: 08/28/24 18:54 Last Admin: 08/28/24 19:48 Dose: 1 tab Documented By: SHIRA Dexamethasone (Dexamethasone 10 Mg/Ml Vial) 10 mg IV NOW ONE Stop: 08/28/24 18:11 Last Admin: 08/28/24 18:30 Dose: 10 mg Documented By: JAYLYN Sodium Chloride (Normal Saline 0.9%) 1,000 mls @ 1,000 mls/hr IV BOLUS ONE Stop: 08/28/24 19:26 Last Admin: 08/28/24 18:48 Dose: 1,000 mls/hr Documented By: JAYLYN Ketorolac Tromethamine (Ketorolac 30 Mg/Ml Vial) 15 mg IV NOW ONE Stop: 08/28/24 18:11 Last Admin: 08/28/24 18:29 Dose: 15 mg Documented By: JAYLYN Vital Signs Vital signs: Vital Signs - 8 hr 08/28/24 17:50 08/28/24 18:55 08/28/24 19:00 Temperature 98.8 F Pulse Rate 90 83 77 Respiratory Rate 16 Blood Pressure 113/68 Pulse Oximetry 96 98 95 Oxygen Delivery Method Room Air Room Air Medical Decision Making Differential Diagnosis Differential Diagnosis: tonsillitis, strep throat, Lab Data 08/28/24 18:00 08/28/24 18:00 Labs: Lab Results 08/28/24 Range/Units 18:00 WBC 8.2 (4.5-11.0) X10^3/uL RBC 3.92 L (4.0-5.2) X10^6/uL Hgb 13.0 (12.0-16.0) g/dL Hct 38.1 (36-46) % MCV 97.1 (80-100) fL MCH 33.0 (26-34) PG MCHC 34.0 (30-36) % RDW 12.8 (11.6-14.8) % Plt Count 287 (150-400) X10^3/uL Neut % (Auto) 79.2 H (50-75) % Lymph % (Auto) 14.3 L (25-40) % [place] % (Auto) 5.9 (3-14) % Eos % (Auto) 0.3 L (2-4) % Baso % (Auto) 0.3 (0-2) % Neut # (Auto) 6500 (2468-3412) /uL Lymph # (Auto) 1200 (1402-5047) /uL [place] # (Auto) 500 (0-900) /uL Eos # (Auto) 0 (0-450) /uL Baso # (Auto) 0 (0-100) /uL Sodium 138 (137-145) mmol/L Potassium 3.9 (3.4-5.1) mmol/L Chloride 105 (98-107) mmol/L Carbon Dioxide 25 (22-32) mmol/L BUN 10 (7-17) mg/dL Creatinine 0.45 L (0.52-1.04) mg/dL Estimated GFR > 60 (>60) mL/min BUN/Creatinine Ratio 22.2 H (6-22) Glucose 101 H (70-100) mg/dL Calcium 9.8 (8.4-10.2) mg/dL Group A Strep (PCR) Positive H (Negative) Point of Care Testing Test Results Negative Urine Dip Bedside Urine Glucose Negative Bedside Urine Bilirubin - Negative Bedside Urine Ketone - Negative Urine Specific [place] 1.015 Bedside Urine Occult Blood - Negative Bedside Urine pH 6.0 Bedside Urine Protein - Negative Bedside Urine Urobilinogen - Negative Bedside Urine Nitrite - Negative Bedside Urine Leukocytes - Negative Esterase Point of care testing: Point of Care Testing Test Results Negative Urine Dip Bedside Urine Glucose Negative Bedside Urine Bilirubin - Negative Bedside Urine Ketone - Negative Urine Specific [place] 1.015 Bedside Urine Occult Blood - Negative Bedside Urine pH 6.0 Bedside Urine Protein - Negative Bedside Urine Urobilinogen - Negative Bedside Urine Nitrite - Negative Bedside Urine Leukocytes - Negative Esterase MDM Narrative Medical decision making narrative: patient is 39-year-old female history of tonsillitis presents for sore throat ongoing presents to the past few days. Is tolerating secretions but has had decreased p.o. intake secondary to sore throat. So stating that she has been having intermittent fevers. But denies any visual disturbances. At evaluation patient is speaking full sentences protecting airway no voice changes no trismus no stridor. Patient had strep test here positive, was given Toradol, Decadron, with significant relief of her symptoms, here she was able to tolerate p.o. crackers and fluids without any issues. First dose of antibiotics were performed here, will be sent home with additional antibiotics. It was instructed follow up with ENT and her primary care doctor in outpatient setting, she verbalized understanding of this agrees to being discharged home with outpatient follow up Discharge Plan Departure Patient Disposition: Home Clinical Impression: Acute streptococcal pharyngitis Activity Restrictions/Additional Instructions: Please read the discharge instructions sheet carefully and bring all papers to all doctor follow-up visits, as it may contain information that your doctor may want to see. Disease processes change and evolve, if your symptoms worsen or if you develop any new symptoms that are concerning to you please return for evaluation. Your evaluation today does not show any evidence of any life-threatening/serious illnesses requiring admission to the hospital or surgery. Please follow-up with your doctor for re-evaluation in approximately 1 day. Seek immediate medical attention for any worrisome symptoms. Prescriptions: New amoxicillin-pot clavulanate 875-125 mg tablet 1 tab PO BID 10 Days Qty: 20 0RF No Action (DME) True Metrix Glucose Test Strip Strip See Rx Instructions .ROUTE .MEDSUPPLY Qty: 10 Patient Comments: [NO ORIGINAL SIG] Rx Instructions: As directed (DME) lancets [TRUEplus Lancets] 30 gauge misc See Rx Instructions .ROUTE .MEDSUPPLY Qty: 100 Patient Comments: [NO ORIGINAL SIG] Rx Instructions: As directed (DME) blood-glucose meter [True Metrix Glucose Meter] Misc See Rx Instructions .ROUTE 4XD Qty: 1 Rx Instructions: As directed bupropion HCl 150 mg tablet extended release 24 hr 150 mg PO DAILY montelukast [Singulair] 10 mg tablet 10 mg PO DAILY Qty: 60 0RF norethindrone (contraceptive) 0.35 mg tablet 0.35 mg PO DAILY Qty: 84 4RF clobetasol 0.05 % cream 1 applic topical DAILY Qty: 30 0RF Rx Instructions: Apply sparingly to affected area(s) once daily after bathing oxycodone 5 mg tablet 5 mg PO Q4HR PRN (Reason: Pain, Moderate (4-6)) Qty: 10 0RF vit-ferrous sulfat-FA 27 mg iron- 0.8 mg tablet PO acetaminophen 325 mg Tablet 650 mg PO Q6HR PRN (Reason: Pain, Mild (1-3)) Qty: 60 0RF Referrals: Cony Cameron MD [Primary Care Provider] - Stand Alone Forms: Patient Portal/API/Survey
[2024-08-28 20:07] VITALS: PULSE 74; O2SAT 97
[2024-08-28 20:08] VITALS: BP 105/63; PULSE 74; RESP 18; O2SAT 97
== END 2024-08-28 20:14 | disposition home or self-care (01) ==
PROVIDERS: Emergency Medicine; Emergency Provider Student in an Organized Health Care Education/Training Program; PCP Family Medicine
DX: J02.0 Streptococcal pharyngitis (principal)
CPT/HCPCS: 36415; 80048; 81003; 81025; 85025; 87651; 96361; 96374; 96375; 99284; J1100; J1885

== ENCOUNTER → 2025-07-16 07:31 | Outpatient (CLI) | payer OTHER, SELFPAY ==
--- NOTE | 2025-07-16 07:35 | DI.US.S_ITS ---
PROCEDURE: US PELVIC COMPLETE INDICATIONS: IUD PLACEMENT TECHNIQUE: Real-time scanning was performed of the pelvic organs, with image documentation. Additional endovaginal scanning was necessary due to incomplete visualization of the adnexal and endometrial structures by transabdominal scanning. COMPARISON: [facility], , US PELVIC COMPLETE, 09/11/2021, 4:39. FINDINGS: Uterus: Uterus is anteverted and normal in size at 9.6 x 5.6 x 7.3 cm. The myometrium is homogeneous. The endometrium measures 6 mm combined thickness. An IUD is present, which appears to be located within the lower uterine segment. Ovaries: The right ovary measures 2.1 x 2.9 x 1.7 cm, with a calculated ovarian volume of 5.3 cc. The left ovary measures 2.9 x 3.3 x 1.3 cm, with a calculated ovarian volume of 6.4 cc. The ovaries have a normal sonographic appearance. No adnexal masses are seen. Other: No pathologic free abdominal or pelvic fluid. IMPRESSION: An IUD is present, which appears to be located within the lower uterine segment. Recommend correlatio with gynecologic evaluation. Otherwise, no sonographic abnormality of the visualized pelvis. We strive to produce accurate, complete, and clear reports of imaging services. To assist us in improving patient care, this report was composed using standard report templates and voice recognition software. Therefore, it may contain abnormal punctuation, insertions and/or omissions. Occasional wrong-word or sound-alike substitutions may occur. Though we review the report and make efforts to correct it, we do recommend that the report be read carefully in proper context to recognize any text inaccuracies. Dictated by: Barron Woodard M.D. on 07/16/2025 at 19:59 Approved by: Barron Woodard M.D. on 07/16/2025 at 20:07
== END ==
LOC: US 07:33
PROVIDERS: PCP Family Medicine; Referring Provider Family Medicine; Visit Provider Family Medicine
DX: R10.2 Pelvic and perineal pain (principal); Z30.431 Encounter for routine checking of intrauterine contraceptive device
CPT/HCPCS: 76830; 76856